=== PATIENT | female | born 1955 | race Caucasian/White ===

== ENCOUNTER 2021-05-09 07:27 | Outpatient (CLI) | payer MEDICARE, SELFPAY ==
[2021-05-09 08:46] LABS: Alanine Aminotransferase 50 U/L (14-59); Aspartate Amino Transferase 32 U/L (15-37); Cholesterol 152 mg/dL (0-200); Creatine Kinase 88 U/L (26-192); HDL Direct 76 mg/dL (40-60); LDL Cholesterol Calculated 67 mg/dL (<130); Triglycerides 46 mg/dL (0-150)
== END 2021-05-09 07:28 | disposition home or self-care (01) ==
PROVIDERS: PCP Internal Medicine
DX: E78.2 Mixed hyperlipidemia (principal)
CPT/HCPCS: 36415; 80061; 82550; 84450; 84460

== ENCOUNTER 2021-06-10 12:40 | Outpatient (CLI) | payer MEDICARE, SELFPAY ==
--- NOTE | ~2021-06-10 | MM_ITS ---
EXAMINATION: MM screening [facility] BI w jaclyn HISTORY: Screening mammogram TECHNIQUE: Craniocaudal and mediolateral oblique 3-D tomosynthesis images were obtained and synthetic 2-D images were generated. CAD analysis was submitted and interpreted. COMPARISON: 09/25/2014 BREAST PARENCHYMAL COMPOSITION: The breasts are heterogeneously dense, which may obscure small masses . FINDINGS: There is no evidence of suspicious mass, calcification, or architectural distortion to sugg est malignancy in either breast. There has been no suspicious interval change. IMPRESSION: 1. No mammographic evidence of malignancy. 2. Recommend routine screening mammography in one year. BI-RADS Category 1: Negative Reviewed, dictated and finalized at location A.
--- NOTE | ~2021-06-10 | DEXA_ITS ---
Bone Density Report Name: Carolina Serrano Age: 65 Sex: Female Ethnicity: White Date of : 1955 Indication: postmenopausal; screening for osteoporosis; Referring Provider: Neftali, Jessica Bobo Study: Bone densitometry was performed. Exam Date: June 10, 2021 Accession number: [id number] Bone Density: Region BMD T-score Z-score Classification AP Spine(L1-L4) 0.905 -1.3 0.5 Osteopenia Femoral Neck (Left) 0.623 -2.0 -0.5 Osteopenia Total Hip (Left) 0.823 -1.0 0.3 Normal Femoral Neck (Right) 0.698 -1.4 0.2 Osteopenia Total Hip (Right) 0.869 -0.6 0.7 Normal Femoral Neck Mean 0.661 -1.7 -0.1 Osteopenia Total Hip Mean 0.846 -0.8 0.5 Normal World Health Organization criteria for BMD impression classify patients as: Normal (T-score at or above -1.0), Osteopenia (T-score between -1.0 and -2.5), or Osteoporosis (T-score at or below -2.5). 10-year Fracture Risk(1): Major Osteoporotic Fracture 11% Hip Fracture 1.7% Reported Risk Factors: [place] (), Neck BMD=0.623, BMI=26.9 (1) FRAX(R) Version 3.08. Fracture probability calculated for an untreated patient. Fracture probability may be lower if the patient has received treatment. Clinical Information Provided by Patient: Has used the following medications: Vitamin D Menopause Age: 53 No regular weight bearing exercise Onset of menses at age 14 Number of children 2 Impression: The patient has low bone mass, based on the Left Femoral Neck T-score. Discussion: BONE DENSITY IS LOW AT ONE OR MORE SKELETAL SITES. This patient's lowest T-score is low at one or more skeletal sites. It meets the World Health Organization's (WHO) criteria for ?low bone mass? (T-score between -1.0 and -2.5). The patient's 10-year risk of fracture as calculated by FRAX is less than the threshold where pharmacological therapy is recommended by the National Osteoporosis Foundation (NOF). However, all treatment decisions require clinical judgment and consideration of individual patient factors, including patient preferences, comorbidities, previous drug use, risk factors not captured in the FRAX model (e.g., frailty, falls, vitamin D deficiency, increased bone turnover, interval significant decline in bone density) and possible under or overestimation of fracture risk by FRAX. The patient should follow a healthful lifestyle (good nutrition with adequate calcium and vitamin D, and appropriate weight-bearing exercise). Follow-Up: Consider repeating this study in 2 to 3 years to reassess this patient's status, or sooner if there is some new clinical indication. Reported by: Dr. Justin Callahan on 06/10/2021 1:09:00 PM. Reviewed, dictated and finalized at location [facility]US[facility]uan Manuel
== END 2021-06-10 12:41 | disposition home or self-care (01) ==
PROVIDERS: PCP Internal Medicine; Visit Provider Nurse Practitioner Obstetrics & Gynecology
DX: M85.80 Other specified disorders of bone density and structure, unspecified site (principal); Z12.31 Encounter for screening mammogram for malignant neoplasm of breast; Z78.0 Asymptomatic menopausal state
CPT/HCPCS: 77063; 77067; 77080

== ENCOUNTER 2021-12-25 06:55 | Outpatient (CLI) | payer MEDICARE, SELFPAY ==
[2021-12-25 08:08] LABS: Alanine Aminotransferase 32 U/L (14-59); Anion Gap 7 mmol/L (8-16); Aspartate Amino Transferase 22 U/L (15-37); Blood Urea Nitrogen 11 mg/dL (7-18); Calcium 9.5 mg/dL (8.5-10.1); Carbon Dioxide 29 mmol/L (21-32); Chloride 104 mmol/L (98-108); Cholesterol 138 mg/dL (0-200); Creatine Kinase 44 U/L (26-192); Estimated Glomerular Filt Rate > 60; Glucose 88 mg/dL (70-99); HDL Direct 60 mg/dL (40-60); LDL Cholesterol Calculated 70 mg/dL (<130); Osmolality Calculated 288 mOsm/kg (285-295); Potassium 4.4 mmol/L (3.5-5.1); Sodium 140 mmol/L (136-145); Triglycerides 41 mg/dL (0-150)
== END 2021-12-25 06:56 | disposition home or self-care (01) ==
LOC: CHSLAB 06:59
PROVIDERS: PCP Internal Medicine
DX: I48.0 Paroxysmal atrial fibrillation (principal); E78.2 Mixed hyperlipidemia
CPT/HCPCS: 36415; 80048; 80061; 82550; 84450; 84460

== ENCOUNTER 2022-06-02 06:57 | Outpatient (CLI) | payer MEDICARE, SELFPAY ==
[2022-06-02 07:17] LABS: Add Urine Microscopic? YES; Appearance Urine Clear (Clear); Basophils Absolute Auto 0.03 K/mm3 (0.00-0.10); Basophils Percent Auto 0.7 % (0.0-1.0); Bilirubin Urine Negative (Negative); Blood Urine Negative (Negative); Color Urine Light Yellow (Yellow); Eosinophils Absolute Auto 0.32 K/mm3 (0.02-0.50); Eosinophils Percent Auto 7.4 % (1.0-6.0); Glucose Urine UA Negative (Negative); Hemoglobin 13.6 g/dL (11.7-13.8); Immature Granulocyte Absolute 0.01 K/mm3 (0.00-0.00); Immature Granulocyte Percent A 0.2 % (0.0-0.0); Ketones Urine Negative (Negative); Leukocyte Esterase Ur Trace (Negative); Lymphocytes Absolute Auto 1.17 K/mm3 (1.10-4.50); Mean Corpuscular Hemoglobin 34.9 pg (27.0-31.0); Mean Corpuscular Volume 102.6 fL (78.0-102.0); Mean Platelet Volume 11.1 fl (9.2-11.8); Monocytes Absolute Auto 0.48 K/mm3 (0.10-0.90); Monocytes Percent Auto 11.1 % (2.0-11.0); Neutrophils Absolute Auto 2.3 K/mm3 (1.7-7.2); Neutrophils Percent Auto 53.6 % (50.0-70.0); Nitrate Urine Negative (Negative); Platelet Count Result 162 K/mm3 (150-420); Protein Urine Negative (Negative); Red Cell Distribution Width 12.5 % (11.6-14.4); Urobilinogen Urine 0.2 mg/dL (0.2-1.0); White Blood Count 4.3 K/mm3 (4.8-10.8)
[2022-06-02 07:25] LABS: Bacteria Urine Trace /hpf; RBC Urine None seen /hpf (0-2); Squamous Epithelial Cell Urine Rare /hpf (Few); WBC Urine 0-3 /hpf (0-3)
[2022-06-02 08:11] LABS: Alanine Aminotransferase 26 U/L (14-59); Albumin Level 3.9 g/dL (3.4-5.0); Alkaline Phosphatase 96 U/L (46-116); Anion Gap 5 mmol/L (8-16); Aspartate Amino Transferase 17 U/L (15-37); Bilirubin,Total 0.6 mg/dL (0.00-1.00); Blood Urea Nitrogen 13 mg/dL (7-18); Calcium 9.5 mg/dL (8.5-10.1); Carbon Dioxide 29 mmol/L (21-32); Chloride 105 mmol/L (98-108); Cholesterol 143 mg/dL (0-200); Estimated Glomerular Filt Rate > 60; Glucose 96 mg/dL (70-99); HDL Direct 58 mg/dL (40-60); LDL Cholesterol Calculated 76 mg/dL (<130); Osmolality Calculated 288 mOsm/kg (285-295); Potassium 4.2 mmol/L (3.5-5.1); Sodium 139 mmol/L (136-145); Thyroid Stimulating Hormone 4.24 uIU/mL (0.36-3.74); Total Protein 6.9 g/dL (6.4-8.2); Triglycerides 44 mg/dL (0-150)
== END 2022-06-02 06:58 | disposition home or self-care (01) ==
LOC: CHSLAB 06:59
PROVIDERS: PCP Internal Medicine; Visit Provider Internal Medicine
DX: I48.91 Unspecified atrial fibrillation (principal); E78.5 Hyperlipidemia, unspecified; Z00.00 Encounter for general adult medical examination without abnormal findings
CPT/HCPCS: 36415; 80053; 80061; 81001; 84443; 85025

== ENCOUNTER 2022-06-22 17:55 | Emergency (ER) | payer MEDICARE, SELFPAY ==
[2022-06-22] VITALS (27 sets, daily range): BP systolic 91–130; BP diastolic 39–71; PULSE 74–132; RESP 16; TEMP 37; O2SAT 94–100
--- NOTE | 2022-06-22 17:58 | ECG_ITS ---
Measurements Intervals [place] Rate: 78 P: 49 FL: 149 QRS: 21 QRSD: 81 T: 31 QT: 361 QTc: 413 Interpretive Statements SINUS RHYTHM BASELINE ARTIFACT POSSIBLE LEFT ATRIAL ENLARGEMENT NONSPECIFIC ST ABNORMALITY BORDERLINE ECG NO PREVIOUS ECG AVAILABLE FOR COMPARISON Electronically Signed On 06-24-2022 17:03:28 CDT by Jose C Michel M.D.
--- NOTE | 2022-06-22 18:00 | ED.CHESTPAIN ---
HPI - Chest Pain General Chief Complaint: Dizziness Stated Complaint: throwing up/dizzy/back pain/Urgent Care this AM Time Seen by Provider: 06/22/22 17:57 History of Present Illness HPI narrative: Patient is a 67-year-old white female who has had cloudy urine for the last 2 days without other urinary symptoms. She went to urgent care and was started on Macrobid at 117 this afternoon. At 3:00 p.m. she started having nausea vomiting and diarrhea multiple times. She is dizzy or lightheaded this is especially associated with standing or the upright position. Her diarrhea was loose watery nonbloody. Denies any fever cough runny nose sore throat lumps or bumps. She feels thirsty. Related Data Home Medications Medication Instructions Recorded Confirmed apixaban 5 mg tablet (Eliquis) 5 mg PO BID 06/22/22 06/22/22 atorvastatin 20 mg tablet 20 mg PO HS 06/22/22 06/22/22 metoprolol succinate 50 mg 50 mg PO BID 06/22/22 06/22/22 tablet,extended release 24 hr Allergies Allergy/AdvReac Type Severity Reaction Status Date / Time No Known Allergies Allergy Unknown Unverified 06/22/22 18:06 Review of Systems Review of Systems: All systems reviewed & are unremarkable except as noted in HPI and below Constitutional: Constitutional: Reports as per HPI Eyes: Eyes: Reports no additional eye complaints ENT: Reports system reviewed and no additional complaints, except as documented and Reports as per HPI Cardiovascular: Cardiovascular: Reports no additional cardiovascular complaints and Denies chest pain Respiratory: Respiratory: Reports no additional respiratory complaints, Denies cough and Denies dyspnea Gastrointestinal: Gastrointestinal: Reports as per HPI Musculoskeletal: Musculoskeletal: Reports no additional musculoskeletal complaints Integumentary/Breasts: Skin/Breast: Reports system reviewed and no additional complaints, except as docu Neurologic: Reports system reviewed and no additional complaints, except as documented Psychiatric: Psychiatric: Reports no additional psychiatric complaints Endocrine: Endocrine: Reports no additional endocrine complaints Hematologic/Lymphatic: Hematologic/Lymphatic: Reports no additional hematologic/lymphatic complaints Exam Narrative: Patient's elderly white female she does not appear in any distress. Ears TMs are normal. Neck is supple no lymphadenopathy. Eyes conjunctiva pink sclera nonicteric. Oropharynx is clear with moist mucous membranes lungs are clear heart is regular rate and rhythm without murmurs gallops or rubs abdomen soft and nontender no hepatosplenomegaly or masses. Extremities no cyanosis clubbing or edema. Neurological she is alert and oriented x4 motor and sensory grossly intact Course SAMPLE SEWER/PA Physician Supervision patient was given a L of normal saline as a bolus, Zofran 4 mg ODT. EKG showed sinus rhythm with left atrial enlargement normal axis poor RS progression across the precordium no acute ST T wave changes impression abnormal EKG. Patient received a 2nd bolus of normal saline feels much better no longer dizzy or lightheaded no nausea. No diarrhea since been in the emergency room. Her nausea vomiting diarrhea could have been from Macrobid but I can not say 110% sure. it could be an acute gastroenteritis. Patient was given cephalexin 500 mg. She is given 50 mEq of potassium p.o. and a prescription for K-Dur 20 mEq daily for 10 days. She was given a hard copy of this EKG or prescription. And prescriptions of Zofran and cephalexin were sent to her pharmacy via the phone lines. Vital Signs Vital signs: Vital Signs Temperature 37.0 C 06/22/22 18:01 Pulse Rate 132 H 06/22/22 18:01 Respiratory Rate 16 06/22/22 18:01 Blood Pressure 126/71 06/22/22 18:01 Pulse Oximetry 100 06/22/22 18:01 Oxygen Delivery Room Air 06/22/22 18:01 Temperature 37.0 C 06/22/22 18:01 Pulse Rate 88 06/22/22 20:54 Respiratory Rate 16 06/22/22
[2022-06-22] MEDS: ONDANSETRON HCL ODT 4 MG TABLET PO (18:21)
[2022-06-22 19:03] LABS: Basophils Absolute Auto 0.01 K/mm3 (0.00-0.10); Basophils Percent Auto 0.2 % (0.0-1.0); Eosinophils Absolute Auto 0.03 K/mm3 (0.02-0.50); Eosinophils Percent Auto 0.5 % (1.0-6.0); Hematocrit 34.9 % (35.0-42.0); Immature Granulocyte Absolute 0.02 K/mm3 (0.00-0.00); Immature Granulocyte Percent A 0.3 % (0.0-0.0); Immature Platelet Fraction Pct 3.2 % (1.0-7.0); Lymphocytes Absolute Auto 0.26 K/mm3 (1.10-4.50); Mean Corpuscular HGB Conc 34.4 g/dL (32.0-36.0); Mean Corpuscular Hemoglobin 34.8 pg (27.0-31.0); Mean Corpuscular Volume 101.2 fL (78.0-102.0); Mean Platelet Volume 11.1 fl (9.2-11.8); Monocytes Absolute Auto 0.21 K/mm3 (0.10-0.90); Monocytes Percent Auto 3.2 % (2.0-11.0); Neutrophils Percent Auto 91.8 % (50.0-70.0); Platelet Count Result 125 K/mm3 (150-420); Red Blood Count 3.45 M/mm3 (4.20-5.40); Red Cell Distribution Width 12.9 % (11.6-14.4); White Blood Count 6.5 K/mm3 (4.8-10.8)
[2022-06-22 19:13] LABS: Partial Thromboplastin Time 27.9 SEC (23.90-30.70); Prothrombin Time 11.4 Seconds (9.50-12.10)
[2022-06-22 19:17] LABS: D Dimer 0.75 mg/L (0.19-0.50)
[2022-06-22 19:21] LABS: Alanine Aminotransferase 29 U/L (14-59); Albumin Level 3.9 g/dL (3.4-5.0); Alkaline Phosphatase 103 U/L (46-116); Anion Gap 8 mmol/L (8-16); Aspartate Amino Transferase 18 U/L (15-37); Bilirubin,Total 1.1 mg/dL (0.00-1.00); Blood Urea Nitrogen 11 mg/dL (7-18); Calcium 9.6 mg/dL (8.5-10.1); Carbon Dioxide 28 mmol/L (21-32); Chloride 105 mmol/L (98-108); Estimated Glomerular Filt Rate > 60; Glucose 102 mg/dL (70-99); Osmolality Calculated 291 mOsm/kg (285-295); Potassium 3.3 mmol/L (3.5-5.1); Sodium 141 mmol/L (136-145); Total Protein 6.5 g/dL (6.4-8.2); Troponin I 5.1 ng/L (0.00-60.4)
[2022-06-22] MEDS: SODIUM CHLORIDE 0.9% IV 1,000 ML 999 ML IV CONT ×2 (19:26→21:01)
[2022-06-22] MEDS: POTASSIUM BICARBONATE 25 MEQ TABEF 50 MEQ PO (20:31)
[2022-06-22 21:07] LABS: Appearance Urine Clear (Clear); Bilirubin Urine Negative (Negative); Blood Urine Negative (Negative); Glucose Urine UA Negative (Negative); Ketones Urine Trace (Negative); Leukocyte Esterase Ur Trace (Negative); Nitrate Urine Negative (Negative); Protein Urine Negative (Negative); Specific Grav Ur 1.015 (1.010-1.020); Urobilinogen Urine 0.2 mg/dL (0.2-1.0)
[2022-06-22 21:13] LABS: Add Urine Microscopic? YES; Bacteria Urine Trace /hpf; Color Urine Light Yellow (Yellow); RBC Urine 0-2 /hpf (0-2); Squamous Epithelial Cell Urine Many /hpf (Few); WBC Clumps Urine Present /hpf
[2022-06-22] MEDS: CEPHALEXIN 500 MG CAPSULE PO (21:46)
== END 2022-06-22 22:30 | disposition home or self-care (01) ==
PROVIDERS: Emergency Provider Emergency Medicine; PCP Internal Medicine
DX: R11.2 Nausea with vomiting, unspecified (principal); R19.7 Diarrhea, unspecified; E87.6 Hypokalemia
CPT/HCPCS: 36415; 80053; 81001; 84484; 85025; 85055; 85380; 85610; 85730; 93005; 96360; 96361; 99284; A9270; J7030

== ENCOUNTER 2022-08-29 08:24 | Outpatient (CLI) | payer MEDICARE, SELFPAY ==
--- NOTE | ~2022-08-29 | MM_ITS ---
EXAMINATION: MM screening [facility] BI w jaclyn HISTORY: Screening mammogram TECHNIQUE: Craniocaudal and mediolateral oblique 3-D tomosynthesis images were obtained and synthetic 2-D images were generated. CAD analysis was submitted and interpreted. COMPARISON: 06/10/2021, 09/25/2014, 08/25/2013 BREAST PARENCHYMAL COMPOSITION: The breasts are heterogeneously dense, which may obscure small masses . FINDINGS: No suspicious mass, calcification, or architectural distortion are identified in either nikolay ast to suggest malignancy. There has been no suspicious interval change. IMPRESSION: 1. No mammographic evidence of malignancy. 2. Recommend routine screening mammography in one year. BI-RADS Category 1: Negative Reviewed, dictated and finalized at location A. WASH BUFFER
== END 2022-08-29 08:25 | disposition home or self-care (01) ==
LOC: CHSIMG 08:25
PROVIDERS: PCP Internal Medicine; Visit Provider Nurse Practitioner Obstetrics & Gynecology
DX: Z12.31 Encounter for screening mammogram for malignant neoplasm of breast (principal)
CPT/HCPCS: 77063; 77067

== ENCOUNTER 2022-12-11 07:02 | Outpatient (CLI) | payer MEDICARE, SELFPAY ==
[2022-12-11 07:18] LABS: Basophils Absolute Auto 0.04 K/mm3 (0.00-0.10); Basophils Percent Auto 0.8 % (0.0-1.0); Eosinophils Absolute Auto 0.31 K/mm3 (0.02-0.50); Eosinophils Percent Auto 6.4 % (1.0-6.0); Hemoglobin 14.4 g/dL (11.7-13.8); Immature Granulocyte Absolute 0.02 K/mm3 (0.00-0.00); Immature Granulocyte Percent A 0.4 % (0.0-0.0); Lymphocytes Absolute Auto 1.77 K/mm3 (1.10-4.50); Lymphocytes Percent Auto 36.8 % (18.0-42.0); Mean Corpuscular HGB Conc 34.3 g/dL (32.0-36.0); Mean Corpuscular Hemoglobin 33.7 pg (27.0-31.0); Mean Corpuscular Volume 98.4 fL (78.0-102.0); Mean Platelet Volume 10.4 fl (9.2-11.8); Monocytes Absolute Auto 0.33 K/mm3 (0.10-0.90); Monocytes Percent Auto 6.9 % (2.0-11.0); Neutrophils Absolute Auto 2.3 K/mm3 (1.7-7.2); Neutrophils Percent Auto 48.7 % (50.0-70.0); Platelet Count Result 181 K/mm3 (150-420); Red Blood Count 4.27 M/mm3 (4.20-5.40); Red Cell Distribution Width 11.9 % (11.6-14.4); White Blood Count 4.8 K/mm3 (4.8-10.8)
[2022-12-11 08:19] LABS: Cholesterol 168 mg/dL (0-200); Free T3 3.06 pg/mL (2.18-3.98); Free T4 Free Thyroxine 0.93 ng/dL (0.76-1.46); HDL Direct 60 mg/dL (40-60); LDL Cholesterol Calculated 96 mg/dL (<130); Thyroid Stimulating Hormone 3.47 uIU/mL (0.36-3.74); Triglycerides 62 mg/dL (0-150)
== END 2022-12-11 07:03 | disposition home or self-care (01) ==
LOC: CHSLAB 07:07
PROVIDERS: PCP Internal Medicine; Visit Provider Internal Medicine
DX: R94.6 Abnormal results of thyroid function studies (principal); E78.5 Hyperlipidemia, unspecified
CPT/HCPCS: 36415; 80061; 84439; 84443; 84481; 85025

== ENCOUNTER 2023-06-16 07:06 | Outpatient (CLI) | payer MEDICARE, SELFPAY ==
[2023-06-16 07:29] LABS: Appearance Urine Clear (Clear); Basophils Absolute Auto 0.04 K/mm3 (0.00-0.10); Basophils Percent Auto 0.8 % (0.0-1.0); Bilirubin Urine Negative (Negative); Blood Urine Negative (Negative); Color Urine Yellow (Yellow); Eosinophils Absolute Auto 0.24 K/mm3 (0.02-0.50); Eosinophils Percent Auto 4.9 % (1.0-6.0); Glucose Urine UA Negative (Negative); Hematocrit 39.6 % (35.0-42.0); Hemoglobin 13.6 g/dL (11.7-13.8); Immature Granulocyte Absolute 0.01 K/mm3 (0.00-0.00); Immature Granulocyte Percent A 0.2 % (0.0-0.0); Ketones Urine Negative (Negative); Leukocyte Esterase Ur Trace (Negative); Lymphocytes Absolute Auto 1.14 K/mm3 (1.10-4.50); Lymphocytes Percent Auto 23.1 % (18.0-42.0); Mean Corpuscular HGB Conc 34.3 g/dL (32.0-36.0); Mean Corpuscular Hemoglobin 35.4 pg (27.0-31.0); Mean Corpuscular Volume 103.1 fL (78.0-102.0); Mean Platelet Volume 10.7 fl (9.2-11.8); Monocytes Absolute Auto 0.39 K/mm3 (0.10-0.90); Monocytes Percent Auto 7.9 % (2.0-11.0); Neutrophils Absolute Auto 3.1 K/mm3 (1.7-7.2); Neutrophils Percent Auto 63.1 % (50.0-70.0); Nitrate Urine Negative (Negative); Platelet Count Result 193 K/mm3 (150-420); Protein Urine Negative (Negative); Red Blood Count 3.84 M/mm3 (4.20-5.40); Red Cell Distribution Width 12.4 % (11.6-14.4); White Blood Count 4.9 K/mm3 (4.8-10.8)
[2023-06-16 07:37] LABS: Add Urine Microscopic? YES; RBC Urine None seen /hpf (0-2)
[2023-06-16 07:38] LABS: Bacteria Urine Trace /hpf; Squamous Epithelial Cell Urine Few /hpf (Few); WBC Urine 0-3 /hpf (0-3)
[2023-06-16 07:57] LABS: Alanine Aminotransferase 26 U/L (14-59); Albumin Level 3.9 g/dL (3.4-5.0); Alkaline Phosphatase 98 U/L (46-116); Anion Gap 6 mmol/L (8-16); Aspartate Amino Transferase 18 U/L (15-37); Bilirubin,Total 0.8 mg/dL (0.00-1.00); Blood Urea Nitrogen 10 mg/dL (7-18); Calcium 9.7 mg/dL (8.5-10.1); Carbon Dioxide 29 mmol/L (21-32); Chloride 106 mmol/L (98-108); Cholesterol 177 mg/dL (0-200); Estimated Glomerular Filt Rate > 60; Glucose 88 mg/dL (70-99); HDL Direct 67 mg/dL (40-60); LDL Cholesterol Calculated 98 mg/dL (<130); Osmolality Calculated 290 mOsm/kg (285-295); Potassium 4.7 mmol/L (3.5-5.1); Sodium 141 mmol/L (136-145); Total Protein 6.5 g/dL (6.4-8.2); Triglycerides 60 mg/dL (0-150)
== END 2023-06-16 07:07 | disposition home or self-care (01) ==
LOC: CHSLAB 07:08
PROVIDERS: PCP Internal Medicine; Visit Provider Internal Medicine
DX: I10 Essential (primary) hypertension (principal); I48.91 Unspecified atrial fibrillation
CPT/HCPCS: 36415; 80053; 80061; 81001; 83735; 85025

== ENCOUNTER 2024-06-15 07:06 | Outpatient (CLI) | payer MEDICARE, SELFPAY ==
[2024-06-15 07:21] LABS: Basophils Absolute Auto 0.04 K/mm3 (0.00-0.10); Basophils Percent Auto 0.8 % (0.0-1.0); Eosinophils Absolute Auto 0.27 K/mm3 (0.02-0.50); Eosinophils Percent Auto 5.4 % (1.0-6.0); Hematocrit 37.9 % (35.0-42.0); Hemoglobin 13.1 g/dL (11.7-13.8); Immature Granulocyte Absolute 0.01 K/mm3 (0.00-0.00); Immature Granulocyte Percent A 0.2 % (0.0-0.0); Lymphocytes Absolute Auto 1.11 K/mm3 (1.10-4.50); Lymphocytes Percent Auto 22.3 % (18.0-42.0); Mean Corpuscular HGB Conc 34.6 g/dL (32-36); Mean Corpuscular Hemoglobin 35.4 pg (27.0-31.0); Mean Corpuscular Volume 102.4 fL (78.0-102.0); Mean Platelet Volume 10.2 fl (9.2-11.8); Monocytes Absolute Auto 0.34 K/mm3 (0.10-0.90); Monocytes Percent Auto 6.8 % (2.0-11.0); Neutrophils Percent Auto 64.5 % (50.0-70.0); Platelet Count Result 166 K/mm3 (150-420); Red Cell Distribution Width 12.5 % (11.6-14.4)
[2024-06-15 07:23] LABS: Add Urine Microscopic? YES; Appearance Urine Sl Cloudy (Clear); Bilirubin Urine Negative (Negative); Blood Urine Negative (Negative); Color Urine Light Yellow (Yellow); Glucose Urine UA Negative (Negative); Ketones Urine Negative (Negative); Leukocyte Esterase Ur 2+ (Negative); Nitrate Urine Negative (Negative); Protein Urine Negative (Negative); Specific Grav Ur 1.015 (1.010-1.020)
[2024-06-15 07:35] LABS: Bacteria Urine 1+ /hpf; RBC Urine None seen /hpf (0-2); Squamous Epithelial Cell Urine Moderate /hpf (Few)
[2024-06-15 08:21] LABS: Alanine Aminotransferase 23 U/L (14-59); Alkaline Phosphatase 108 U/L (46-116); Anion Gap 6 mmol/L (4-12); Aspartate Amino Transferase 21 U/L (15-37); Bilirubin,Total 0.9 mg/dL (0.00-1.00); Blood Urea Nitrogen 7 mg/dL (7-18); Calcium 9.4 mg/dL (8.5-10.1); Carbon Dioxide 32 mmol/L (21-32); Chloride 103 mmol/L (98-108); Cholesterol 175 mg/dL (0-200); Estimated Glomerular Filt Rate > 60; Glucose 90 mg/dL (70-99); HDL Direct 67 mg/dL (40-60); LDL Cholesterol Calculated 90 mg/dL (<130); Osmolality Calculated 290 mOsm/kg (285-295); Potassium 4.2 mmol/L (3.5-5.1); Sodium 141 mmol/L (136-145); Thyroid Stimulating Hormone 4.14 uIU/mL (0.36-3.74); Total Protein 6.7 g/dL (6.4-8.2); Triglycerides 92 mg/dL (0-150)
== END 2024-06-15 07:07 | disposition home or self-care (01) ==
PROVIDERS: PCP Internal Medicine; Visit Provider Internal Medicine
DX: E78.5 Hyperlipidemia, unspecified (principal); I48.0 Paroxysmal atrial fibrillation
CPT/HCPCS: 36415; 80053; 80061; 81001; 84443; 85025

== ENCOUNTER 2024-09-12 14:18 | Outpatient (CLI) | payer MEDICARE, SELFPAY ==
--- NOTE | ~2024-09-12 | DEXA_ITS ---
Bone Density Report Name: BRIAN SOSA Age: 69 Sex: Female Ethnicity: White Date of : 1955 Indication: osteopenia; Referring Provider: Ryan Meyers Study: Bone densitometry was performed. Exam Date: September 12, 2024 Accession number: [id number] Bone Density: Region BMD T-score Z-score Classification AP Spine(L1-L4) 0.850 -1.8 0.3 Osteopenia Femoral Neck (Left) 0.618 -2.1 -0.3 Osteopenia Total Hip (Left) 0.820 -1.0 0.5 Normal Femoral Neck (Right) 0.698 -1.4 0.4 Osteopenia Total Hip (Right) 0.860 -0.7 0.8 Normal Femoral Neck Mean 0.658 -1.7 0.0 Osteopenia Total Hip Mean 0.840 -0.8 0.6 Normal World Health Organization criteria for BMD impression classify patients as: Normal (T-score at or above -1.0), Osteopenia (T-score between -1.0 and -2.5), or Osteoporosis (T-score at or below -2.5). 10-year Fracture Risk(1): Major Osteoporotic Fracture 12% Hip Fracture 2.2% Reported Risk Factors: [place] (), Neck BMD=0.618, BMI=26.8 (1) FRAX(R) Version 3.08. Fracture probability calculated for an untreated patient. Fracture probability may be lower if the patient has received treatment. Previous Exams: Region Exam Age BMD T-score BMD Change BMD Change Date g/cm2 vs Baseline vs Previous AP Spine (L1-L4) 09/12/2024 69 0.850 -1.8 -0.055 (-6.1%) -0.055 (-6.1%) 06/10/2021 65 0.905 -1.3 Total Hip(Left) 09/12/2024 69 0.820 -1.0 -0.003 (-0.3%) -0.003 (-0.3%) 06/10/2021 65 0.823 -1.0 Total Hip(Right) 09/12/2024 69 0.860 -0.7 -0.009 (-1.1%) -0.009 (-1.1%) 06/10/2021 65 0.869 -0.6 *Denotes significance at 95% confidence level, LSC for AP Spine = 0.022 g/cm2, LSC for Total Hip = 0.027 g/cm2 Clinical Information Provided by Patient: Has used the following medications: Vitamin D Patient maximum height was 64 Menopause Age: 53 No regular weight bearing exercise Onset of menses at age 14 Number of children 2 Impression: The patient has low bone mass, based on the Left Femoral Neck T-score. The BMD for the AP Spine (L1-L4) decreased, changing by -6.1% since the last DXA exam. Discussion: BONE DENSITY IS LOW AT ONE OR MORE SKELETAL SITES. This patient's lowest T-score is low at one or more skeletal sites. It meets the World Health Organization's (WHO) criteria for ?low bone mass? (T-score between -1.0 and -2.5). The patient's 10-year risk of fracture as calculated by FRAX is less than the threshold where pharmacological therapy is recommended by the National Osteoporosis Foundation (NOF). However, all treatment decisions require clinical judgment and consideration of individual patient factors, including patient preferences, comorbidities, previous drug use, risk factors not captured in the FRAX model (e.g., frailty, falls, vitamin D deficiency, increased bone turnover, interval significant decline in bone density) and possible under or overestimation of fracture risk by FRAX. The patient should follow a healthful lifestyle (good nutrition with adequate calcium and vitamin D, and appropriate weight-bearing exercise). Follow-Up: Consider repeating this study in 2 years to reassess this patient's status, or sooner if there is some new clinical indication. Reported by: RAYMUNDO on 09/12/2024 2:45:00 PM. Reviewed, dictated and finalized at location A.
--- NOTE | ~2024-09-12 | MM_ITS ---
EXAMINATION: MM screening [facility] BI w jaclyn HISTORY: Screening TECHNIQUE: Craniocaudal and mediolateral oblique 3-D tomosynthesis images were obtained and synthetic 2-D images were generated. CAD analysis was submitted and interpreted. COMPARISON: 08/29/2022 and dating back to 09/25/2014 BREAST PARENCHYMAL COMPOSITION: The breasts are heterogeneously dense, which may obscure small masses . FINDINGS: Punctate calcifications detected bilaterally, stable and benign in appearance and vascular in origin. Stable parenchymal pattern without suspicious microcalcifications, architectural distortion, discrete masses or significant asymmetry. IMPRESSION: 1. No mammographic evidence of malignancy. 2. Recommend routine screening mammography in one year. BI-RADS Category 2: Benign finding(s). Reviewed, dictated and finalized at location A. [facility]
== END 2024-09-12 14:19 | disposition home or self-care (01) ==
LOC: CHSIMG 14:19
PROVIDERS: PCP Internal Medicine; Visit Provider Internal Medicine
DX: Z12.31 Encounter for screening mammogram for malignant neoplasm of breast (principal); M81.0 Age-related osteoporosis without current pathological fracture; M85.89 Other specified disorders of bone density and structure, multiple sites
CPT/HCPCS: 77063; 77067; 77080

== ENCOUNTER 2025-01-17 14:35 | Outpatient (CLI) | payer MEDICARE, SELFPAY ==
--- NOTE | ~2025-01-17 | XR_ITS ---
XR knee RT 3V 01/17/2025 14:49 Indication: Right knee pain. Procedure: 3 views right knee Comparison: No prior studies for comparison. Findings: There is mild tricompartment osteoarthritis. There is chondrocalcinosis. No significant hubert nt effusion. No fracture or traumatic malalignment. Impression: 1: Mild tricompartment osteoarthritis. 2: Chondrocalcinosis. Reviewed, dictated and finalized at location A. Impression: 1: Mild tricompartment osteoarthritis. 2: Chondrocalcinosis.
--- OUTSIDE RECORDS SUMMARY | 2025-01-17 16:33 | XMS_ITS | Data Portability ---
Author Organization [facility], [facility], [facility] Address [address] [place] [address] Care Team Providers Care Sales Executive Insurance Name Role Phone Unavailable Referring Provider Unavailable JAMES WEEMS Electrotyper Helper GWYN BILL Primary Care Provider MOISÉS WORKMAN Electrotyper Helper Assessment No assessment recorded. Plan of Treatment Reminders Order Date Submit Date Provider Last Modified By Organization Details Last Modified Time Details Appointments None recorded. Lab None recorded. Referral None recorded. Procedures None recorded. Surgeries None recorded. Imaging electrocar diogram 2023 024 jarambula In-Office Order, Internal Use Only DO Not Attach Compendium DO Not Attach Compendium, Do Not Delete/merge, [id number] 10:34:43 US, echocardio gram - Schedule at [facility] or [facility] sites only. 2023 024 [facility], [facility], All Locations, [place], [address], 4 12:39:23 electrocar diogram 2022 023 [email or web address] In-Office Order, Internal Use Only DO Not Attach Compendium DO Not Attach Compendium, Do Not Delete/merge, [id number] 3 08:15:52 Medication Orders atorvastat in 20 mg tablet 2023 024 [place] [facility], [facility] [address], [address], [id number], 4 10:07:42 Eliquis 5 mg tablet 2023 024 [place] [facility], [address], [address], [place], [place], [id number], 4 10:07:41 flecainide 50 mg tablet 2023 024 [place] [facility], [address], [address], [place], [place], [id number], 4 10:07:42 metoprolol succinate ER 25 mg tablet,ext ended release 24 hr 2023 024 [place] [facility], [address], [address], [place], [place], [id number], 4 10:07:41 flecainide 50 mg tablet 2022 023 [place] [facility], [address], [address], [place], [place], [id number], 3 13:00:55 metoprolol succinate ER 25 mg tablet,ext ended release 24 hr 2022 023 [place] [facility], [address], [address], [place], [place], [id number], 3 13:00:55 atorvastat in 20 mg tablet 2021 022 [place] [facility], [address], [address], [place], [place], [id number], 2 08:21:54 Eliquis 5 mg tablet 2021 022 [place] [facility], [address], [address], [place], [place], [id number], 2 08:21:53 metoprolol succinate ER 50 mg tablet,ext ended release 24 hr 2021 022 [place] [facility], [facility] [address], [facility] [address], [place], [place], [id number], 3 13:14:56 Patient TargetsNo targets recorded. Patient InstructionsNo instructions recorded. Reason for Referral None Reported. Results Created Date Observation Date Name Description Value Unit Range Abnormal Flag Note LastModifiedBy Organization Detail LastModifiedTime 12/09/19 23 elect rocar diogr am No observ ation record ed. [email or web address] Not Available 2022 12:35:53 02/28/20 23 02/27/2023 elect rocar diogr am No observ ation record ed. [facility] [address] [facility] [address], [place], [address], 02/27/2023 15:32:32 08/01/20 24 elect rocar diogr am No observ ation record ed. [email or web address] Not Available 2023 10:00:04 08/08/20 24 08/08/2024 , [facility] ardio gram No observ ation record ed. [facility] Services [facility] All Locations, [place], [address], 08/08/2024 12:53:09 Result Notes None recorded. Problems Name Problem SNOMED Code Status Onset Date Resolution Date Notes Provider Name and Address Organization Details Recorded Time Paroxysmal supraventr icular tachycardi a 54318781 Active 09/2021 on Zio monitor James Weems MD [address], [place], [address], [facility], [facility] 09:20:48 Dyspnea on exertion 87774590 Active 2018 James Weems MD [address], [place], [address], [facility], [facility] 9 08:47:09 Atheroscle rosis of aorta 27504557 Active 2019 Ana Luisa Renee, TIMBER CUTTER [address], [place], [address], [facility], [facility] 0 08:19:26 Tricuspid valve regurgitat ion 404538950 Active 2019 mild James Weems MD [address], [place], [address], [facility], [facility] 0 15:44:08 Mitral valve regurgitat ion 18238002 Active 2019 mild James Weems MD [address], [place], [address], [facility], [facility] 0 15:44:02 Cardiovasc ular stress test abnormal 702552128 Active 201909/07/[address] changes on TST 10/10/2019 mild apical ischemia on NST; medical therapy 09/03/2021 normal NST James Weems MD [address], [place], [address], [facility], [facility] 1 09:55:07 Mixed hyperlipid emia 796193690 Active 2019 James Weems MD [address], [place], [address], [facility], [facility] 0 15:45:08 Overweight 784212097 Active 2019 James Weems MD [address], [place], [address], [facility], [facility] 0 15:45:23 Paroxysmal atrial fibrillati on 362555573 Active 07/2021 new onset; started Eliquis 09/2021 Zio monitor: 16% 11/2022 started flecainide James Weems MD [address], [place], [address], [facility], [facility] 3 11:32:19 Problem Notes None recorded. Procedures Surgical History Date Name Laterality Status Provider Name and Address Organization Details Recorded Time 4 G2211 completed James Weems MD [address] [facility] [address], [place], [address], [facility] - [facility], [facility] 08/01/2024 09:57:44 Colonoscopy completed Marian Alvares [facility], [facility] 08/06/2023 08:07:31 Imaging Results Imaging Date Name Status LastModified by Organization Details LastModified Time 12/08/2022 electrocardiogram completed [email or web address] Informa tion not available 12/08/2022 12:35:53 02/27/2023 electrocardiogram completed [facility] [address], [place], [address], 02/27/2023 15:32:32 08/01/2024 electrocardiogram completed [email or web address] Informa tion not available 08/01/2024 10:00:04 08/08/2024 US, echocardiogram completed nleson Th[facility] All Locations, [place], [address], 08/08/2024 12:53:09 Procedure Notes None recorded. Medical Equipment None Reported. Allergies No known drug allergies Medications Name Sig Start Date Stop Date Status Note LastModified by Organization Details LastModified Time atorvastat in 20 mg tablet Take 1 tablet every day by oral route at bedtime. 2023 active Not Available Not Available Not Avai lable metoprolol succinate ER 50 mg tablet,ext ended release 24 hr Take 1 tablet twice a day by oral route. 12/08 completed Not Available Not Available Not Available aspirin 81 mg tablet,del ayed release Take 1 tablet every day by oral route. 07/29 completed Not Available Not Available Not Available biotin 10,000 mcg capsule Take 1 capsule every day by oral route. 07/29 completed pt has not been taking Not Available Not Available Not Available flecainide 50 mg tablet Take 1 tablet every 12 hours by oral route. 11/11/ 2024 active Not Available Not Available Not Avai lable estradiol 0.5 mg tablet Take 1 tablet by oral route. 10/20 completed Take every 4 days Not Available Not Available Not Available metoprolol succinate ER 25 mg tablet,ext ended release 24 hr Take 1 tablet twice a day by oral route. 2023 active Not Available Not Available Not Avai lable Vitamin D3 5,000 units daily 08/01 completed Not Available Not Available Not Available PreserVisi on AREDS daily 08/01 completed Not Available Not Available Not Available Eliquis 5 mg tablet Take 1 tablet twice a day by oral route. 2023 active Not Available Not Available Not Avai lable Vitals Date Recorded Body height Body mass index (BMI) Body weight Heart rate Oxygen saturation Oxygen saturation in Arterial blood by Pulse oximetry Systolic blood pressure Diastolic blood pressure Provider Name and Address Organization Details Last Updated DateTime 2 160.02 cm 26.7 kg/m2 55405.0 1 g 54.99 /min 95 % 95 % 108 mm[Hg] 60 mm[Hg] [facility], [facility] 2 08:07:28 Date Recorded Body height Body mass index (BMI) Body weight Heart rate Systolic blood pressure Diastolic blood pressure Provider Name and Address Organization Details Last Updated DateTime 3 160.02 cm 26 kg/m2 09513.0 8 g 52 /min 116 mm[Hg] 70 mm[Hg] Bharati Gordon [facility], [facility] 3 12:26:22 Date Recorded Body height Heart rate Body mass index (BMI) Body weight Systolic blood pressure Diastolic blood pressure Provider Name and Address Organization Details Last Updated DateTime 3 160.02 cm 58 /min 25.7 kg/m2 65662.8 9 g 123 mm[Hg] 60 mm[Hg] James Weems MD [address] [facility] [address], [place], [address] [place] [address], [facility] 3 14:14:38 Date Recorded Body height Body mass index (BMI) Body weight Oxygen saturation Oxygen saturation in Arterial blood by Pulse oximetry Heart rate Systolic blood pressure Diastolic blood pressure Provider Name and Address Organization Details Last Updated DateTime 3 160.02 cm 26.7 kg/m2 21274.3 7 g 99 % 99 % 47 /min 90 mm[Hg] 60 mm[Hg] Marianmacario Alvraes [facility], [facility] 3 08:10:21 Date Recorded Body height Body mass index (BMI) Body weight Oxygen saturation Oxygen saturation in Arterial blood by Pulse oximetry Heart rate Systolic blood pressure Diastolic blood pressure Provider Name and Address Organization Details Last Updated DateTime 4 160.02 cm 26.3 kg/m2 07990.4 7 g 97 % 97 % 56 /min 100 mm[Hg] 66 mm[Hg] Gisselle Madeleine [facility], [facility] 4 09:51:55 Social History Question Answer Notes LastModified by Organizat ion Details LastModified Time Tobacco Smoking Status Never Smoker Bharati basurto [facility], [facility] 08/23/2019 08:30:04 How Much Tobacco Do You Chew? None Information not available 08/23/2019 What Is Your Occupation? Retired Information not available 08/23/2019 Alcohol Use 1-2 Per Week Information not available 08/23/2019 Marital Status Informatio n not available 08/23/2019 Do You Or Have You Ever Used Smokeless Tobacco? Never Used Smokeless Tobacco Information not available 08/23/2019 Sex: Female Functional Status None recorded. Mental Status None recorded. Family History Relationship Description Onset Age of this Age Resolved Age Notes LastModified by Organization Details LastModified Time Father No current problems or disability [email or web address] Not available 08/06 08:07:16 Mother No current problems or disability [email or web address] Not available 08/06 08:07:16 Mother Arthritis [email or web address] Not availab le 08/06/2023 08:07:16 Mother Hypothyroidi sm [email or web address] Not available 2022 08:07:16 Mother Atrial fibrillation [email or web address] Not available 08:07:16 Medical History Condition Response Cancer (location) N Other N Gout N Thyroid Disease N Kidney Stones N Measles/Mumps Y Emphysema/COPD N Sexually Transmitted Disease N Depression N Prostate Problems N Vascular Disease N Rash/Skin Condition N Amputation (location) N Parkinson's N Paralysis N Headaches/Migraines N Cardiac Pacemaker/defibrillator N Nerve Damage / Neuropathy N Arthritis N Sleep disorder/Insomnia N Infertility N Heart disease / Heart Attack N Crohn's Disease N HIV/AIDS N Stroke/TIA N Colon Problems N High Cholesterol N Serious Injuries N Kidney Disease N Memory Loss/Alzheimer's N Gallbladder disease N High blood pressure N Congestive heart failure N Falls N Alcohol Overuse N Blood Thinner Treatment N Hormone Replacement N Nervous Breakdown N Mcfarlane's Esophagus N Anemia N Urinary Problems N Colon Polyps N Gastritis N Hospitalizations (other than operations) N Back pain N Diabetes N Rheumatic Fever N Bleeding Disorder N Cardiac Arrhythmias /irregular heart rat e N Osteopenia/Osteoporosis N Anxiety/Stress N Asthma N Vision Problems N Erectile / Sexual Dysfunction N Ostomies (location) N Seizures N Jaundice N Sleep Apnea N Hepatitis N Past Reacton to Contrast Media N Cirrhosis N GERD/Ulcer N Chicken Pox N Allergies (other than meds) Y Gynecological HistoryNo gynecological history recorded. Obstetrics History GPAL:G 0 P 0 0 0 0 Past Encounters Encounter ID Performer Location Encounter Start Date Encounter Closed Date Diagnosis/Indication Diagnosis SNOMED-CT Code Diagnosis ICD10 Code Diagnosis Note [id number] James Weems MD [facility] [address] [address] [place] [address] 08/23/2019 07:59:57 08/23/2019 09:03:12 Dyspnea on exertion 75228449 R06.09 Patient's EKG today is normal and her exam is also benign. She also has low cardiac risk factors as well. Upon further questionin g, patient admits to a predominan tly sedentary lifestyle. I think the simplest explanatio n for her current symptom is likely to be deconditio fercho. For reassuranc e, I will order a treadmill stress test to evaluate this further. Risk, benefits, and alternativ es to stress test were discussed with the patient. {{He She*} } gave informed consent for testing. Heart murmur 07509573 R0 1.1 Patient has a soft heart murmur on exam today. This will be further evaluated with an echocardio gram as well. [id number] Ana Luisa Renee APRN [facility] [address] [address] [place] [address] 09/28/2019 07:38:00 09/28/2019 08:11:50 Dyspnea on exertion 32781380 R06.09 Stable: Dyspnea on exertion persists. Has not increased in severity. Patient did undergo a treadmill stress test which showed borderline [address] depression inferiorly . Given findings and persistent symptoms, recommend nuclear stress test to assess further. Atheroscle rosis of aorta 81494263 I70.0 Chronic: Atheroscle rotic plaquing of the ascending aorta seen on echo. Will obtain lipid panel. Repeat stress test ordered as above Mitral venancio ve regurgitation 30307874 I34.0 Chronic: Trace per echo. Continue to monitor conservati vely Tricuspid valve regurgitation 627219577 I07.1 Chronic: Trace per echo. Continue to monitor conservati vely [id number] An aLuisa Renee APRN [facility] [address] [address] [place] [address] 10/20/2019 08:24:23 10/20/2019 09:14:39 Dyspnea on exertion 48035827 R06.09 Stable: Dyspnea on exertion persists. Has not increased in severity. Recent treadmill stress test which showed borderline [address] depression inferiorly . She therefore underwent a nuclear stress test which showed a mild basal lateral reversible defect consistent with ischemia. Medical therapy has been advised as detailed above. Cardiovasc ular stress test abnormal 533180578 R94.39 Stable: Recent nuclear stress test revealed a mild basal lateral reversible defect consistent with ischemia. Medical therapy has been advised. She has been started on aspirin daily as well as beta-block er and statin therapy. She will return in 1 month for reassessme nt. Mixed hyperlipidemia 267 242800 E78.2 Chronic: Patient reports normal lipid panel in June 2019. I do not have records for review. Given her abnormal stress test as detailed above, statin therapy has been initiated. Will repeat lipids in 2 months. [id number] James Weems MD [facility] [address] [address] [place] [address] 11/24/2019 15:24:05 11/24/2019 16:08:19 Cardiovascular stress test abnormal 618405589 R94.39 I visualized the patient's {{nuclear stress test* ronda dmill stress test echoc ardiogram cardiac catheteriz ation [place] er monitor Zi o monitor CT coronary calcium score}} results personally and discussed the findings with the patient in detail. The apical defect is both small and mild. I think this is most likely due to shifting breast attenuatio n. Patient feels well without symptoms. Therefore, I would recommend continued medical therapy. Mitral venancio ve regurgitation 49462916 I34.0 I reviewed the patient's echocardio gram results personally and discussed the findings with the patient in detail. The {{aortic stenosis a ortic regurgitat ion mitral stenosis m itral regurgitat ion* tricu spid regurgitat ion}} is not clinically significan t at this time. Therefore, I would recommend continued surveillan ce. Mixed hyperlipidemia 267 802231 E78.2 Patient was started on atorvastat in because of abnormal stress test. A fasting lipid profile will be ordered to assess the efficacy of therapy. [id number] James Weems MD [facility] [address] [facility] [address] [place] [address] 07/25/2020 08:49:38 07/25/2020 09:32:12 Mixed hyperlipidemia 264534865 E78.2 Patient's most recent lipid profile {{last week earli er this month last month in September in October i n November in December in January in February in March* in April in May in June in July i n August}} was favorable after starting atorvastat in. Therefore, I will continue {{his her* }} current therapy. Mitral venancio ve regurgitation 97187543 I34.0 Patient's mitral regurgitat ion appears to be stable. {{He She*} } is asymptomat ic and I do not detect any signs or symptoms of congestive heart failure. Cardiovasc ular stress test abnormal 642931130 R94.39 Patient had mildly abnormal stress test earlier this year. Fortunatel y she is asymptomat ic. Therefore, I would continue current medical therapy. Overweight 615004984 E66 .3 Patient lost {{ 1 2 3* 4 5 6 7 8 9 10}} lb[s] since {{his her* }} last office visit. I congratula doris the patient on {{his her* }} efforts so far and encouraged {{him her* }} to {{continue maintain his current weight tobias torres her current weight*}}. [id number] James Weems MD [facility] [address] [address] [place] [address] 12/11/2020 08:40:45 12/11/2020 09:25:47 Mixed hyperlipidemia 003772555 E78.2 Patient has not had a lipid profile in some time. Therefore, I will order a fasting lipid profile along with surveillan ce LFT's and CPK to assess this further. Mitral venancio ve regurgitation 10981602 I34.0 Patient's mitral regurgitat ion appears to be stable. {{He She*} } is asymptomat ic and I do not detect any signs or symptoms of congestive heart failure. Overweight 451215621 E66 .3 Patient lost {{ 1 2 3* 4 5 6 7 8 9 10}} lb[s] since {{his her* }} last office visit. I congratula doris the patient on {{his her* }} efforts so far and encouraged {{him her* }} to {{continue maintain his current weight tobias ntain her current weight*}}. Cardiovasc ular stress test abnormal 405994821 R94.39 Patient had mildly abnormal stress test a year. Fortunatel y she is asymptomat ic. Therefore, I would continue current medical therapy. A repeat stress test will be considered at the next office visit. [id number] James Weems MD [facility] [address] [address] [place] [address] 07/29/2021 08:46:33 07/29/2021 09:28:44 Mixed hyperlipidemia 815707951 E78.2 Patient's most recent lipid profile {{in* last earlier this this} } {{September M arch December Augus t* Septemb er June w [place] tribe month week}} was {{favorabl e* at goal favor able in the absence of heart disease im proved after the addition of improve d after switching to improve d after the addition of ezetimibe improved after increasing the dose of at goal after starting}} . Therefore, I will continue {{atorvast atin* simv astatin ro suvastatin pravastat in lovasta tin ezetim ramirez Praule nt Repatha Vascepa f enofibrate }} {{1 2 5 10 20* 40 75 80 140 14 5}} mg {{daily* t wice daily ever y 2 weeks bijal y and ezetimibe 10 mg daily}}. Mitral venancio ve regurgitation 14399506 I34.0 Patient has a history of mitral regurgitat ion. In view of her new atrial fibrillati on, repeat echocardio gram will be ordered to assess for any progressio n. Cardiovasc ular stress test abnormal 894847867 R94.39 Patient had an abnormal stress test nearly 2 years ago. She also has new onset atrial fibrillati on. Therefore, I will order a nuclear stress test to evaluate this further. Risk, benefits, and alternativ es to stress test were discussed with the patient. {{He She*} } gave informed consent for testing. Paroxysmal atrial fibrillation 752514047 I48.0 Patient's EKG today shows new onset atrial fibrillati on of unclear duration. {{His Her* }} CHADS2-VAS C score is 4 which places the patient at risk for stroke, myocardial infarction , and other thromboemb olic events. Therefore, I would recommend anticoagul ation. Risk and benefits of anticoagul ation, including alternativ es, were explained to the patient. {{He She*} } understand s and agrees with the treatment plan. {{Coumadin Eliquis* Xarelto Pr adaxa Sava melody}} {{2.5 mg twice daily 5 mg twice daily* 15 mg daily 20 mg daily 75 mg twice daily 150 mg twice daily}} will be started and aspirin will be discontinu ed. Additional ly, she is also mildly tachycardi c on exam. Therefore, I will increase her metoprolol to 50 mg daily. [id number] James Weems MD [facility] [address] [facility] [address] [place] [address] 09/10/2021 09:28:59 09/10/2021 10:15:58 Cardiovascular stress test abnormal 658548241 R94.39 I {{reviewed * also reviewed v isualized also visualized }} the patient's nuclear stress test results personally and discussed the findings with the patient in detail. I was glad to see that it did not show any ischemia. This is an improvemen t when compared with her previous nuclear stress test in 2019, therefore, I would recommend {{medical therapy* n o additional cardiac work-up at this time}}. Mitral venancio ve regurgitation 89161811 I34.0 I {{reviewed also reviewed* visualized also visualized }} the patient's echocardio gram results personally and discussed the findings with the patient in detail. The {{aortic stenosis a ortic regurgitat ion mitral stenosis m itral regurgitat ion* tricu spid regurgitat ion}} is not clinically significan t at this time. Therefore, I would recommend continued surveillan ce. Paroxysmal atrial fibrillation 953382198 I48.0 Patient is doing well after starting {{Eliquis* Xarelto P radaxa Saad aysa Couma din}} {{2.5 5* 2 0 150 60}} mg {{daily tw ice daily* juan ly or as directed}} . {{He She*} } has not experience d any abnormal bleeding. Therefore, I will continue with current therapy. However, she is tachycardi c on exam today. Therefore, I will increase her metoprolol to 50 mg twice daily and order a Zio monitor to {{evaluate this further co rrelate with the patient's symptoms r ule out any occult arrhythmia s assess the overall rate control*}} . Mixed hyperlipidemia 267 325366 E78.2 Patient's most recent lipid profile {{in* last earlier this this} } {{September M arch December Augus t* Septemb er June w [place] month week}} was {{favorabl e* at goal favor able in the absence of heart disease im proved after the addition of improve d after switching to improve d after the addition of ezetimibe improved after increasing the dose of at goal after starting}} . Therefore, I will continue {{atorvast atin* simv astatin ro suvastatin pravastat in lovasta tin ezetim ramirez Praule nt Repatha Vascepa f enofibrate }} {{1 2 5 10 20* 40 75 80 140 14 5}} mg {{daily* t wice daily ever y 2 weeks bijal y and ezetimibe 10 mg daily}}. Overweight [id number] E66 .3 Patient lost {{ 1 2 3* 4 5 6 7 8 9 10}} lb[s] since {{his her* }} last office visit. I encouraged {{him her* }} to {{continue maintain his current weight tobias ntain her current weight*}}. [id number] James Weems MD [facility] [address] [address] [place] [address] 10/23/2021 08:49:20 10/23/2021 09:40:04 Mitral valve regurgitation [id number] I34.0 Patient's mitral regurgitat ion appears to be stable. {{He She*} } is asymptomat ic and I do not detect any {{signs or symptoms* symptoms}} of congestive heart failure. Mixed hyperlipidemia [id number] E78.2 Patient has not had a lipid profile in some time. Therefore, I will order a fasting lipid profile along with surveillan ce LFT's and CPK to assess this further. Paroxysmal atrial fibrillation [id number] I48.0 I {{reviewed * also reviewed}} the patient's Zio monitor results personally and discussed the findings with the patient in detail. It showed atrial fibrillati on with 16% burden. Patient's atrial fibrillati on rate is better controlled with the higher dose of metoprolol . Therefore, patient will continue with the current regimen of metoprolol 50 mg twice daily and anticoagul ation with Eliquis 5 mg twice daily. [id number] James Weems MD [facility] [address] [address] [place] [address] 08/05/2022 07:48:57 08/05/2022 16:38:11 Paroxysmal atrial fibrillation [id number] I48.0 Patient's paroxysmal atrial {{fibrilla tion* flut ter}} is under good control. {{He She*} } is {{anticoag ulated* do ing well after starting}} on {{Eliquis* Xarelto P radaxa Saad aysa warfa rin}} {{2.5 5* 1 0 15 20 15 0 60}} mg {{daily tw ice daily* juan ly or as directed}} . Overweight [id number] E66 .3 Patient did not lose weight since {{his her* }} last office visit. I had a discussion with the patient regarding the importance of weight reduction in the context of {{his her* }} cardiac condition. Dietary modificati on and increased physical activity were advised. Patient verbalize understand ing of this. Mixed hyperlipidemia [id number] E78.2 Patient reports having a lipid profile through {{his her* }} primary care physician' s office. I do not have those results for review. Therefore, I will defer treatment to the ordering provider. Mitral venancio ve regurgitation [id number] I34.0 Patient's mitral regurgitat ion appears to be stable. {{He She*} } is asymptomat ic and I do not detect any {{signs or symptoms* symptoms}} of congestive heart failure. [id number] James Weems MD [facility] [id number] [place] [address] 12/08/2022 12:10:27 12/09/2022 08:19:35 Paroxysmal atrial fibrillation [id number] I48.0 Patient has been experienci ng recurrent palpitatio ns every 4 days or so which sometimes can last hours. These episodes are uncomforta ble for her. Therefore, I will initiate treatment with flecainide 50 mg twice daily on a trial basis. Because of her bradycardi a, I will also reduce her metoprolol from 50 mg to 25 mg twice daily. Patient will continue anticoagul ation with Eliquis 5 mg twice daily. Overweight [id number] E66 .3 Patient did not lose weight since {{his her* }} last office visit. I had a discussion with the patient regarding the importance of weight reduction in the context of {{his her* }} cardiac condition. Dietary modificati on and increased physical activity were advised. Patient verbalize understand ing of this. Mixed hyperlipidemia [id number] [id number] E78.2 Patient reports having a lipid profile through {{his her* }} primary care physician' s office. I do not have those results for review. Therefore, I will defer treatment to the ordering provider. Mitral venancio ve regurgitation [id number] I34.0 Patient's mitral regurgitat ion appears to be stable. {{He She*} } is asymptomat ic and I do not detect any {{signs or symptoms* symptoms}} of congestive heart failure. [id number] James Weems MD [facility] [address] [address] [place] [address] 01/23/2023 11:15:26 01/23/2023 14:33:28 Paroxysmal atrial fibrillation [id number] I48.0 Patient's {{blood pressure t achycardia bradycard ia palpita tions* diz ziness velvet st pain}} {{improved * resolved did not improve is still elevated r emains under good control}} since {{his her* }} last office visit after {{the addition of the dose was increased the dose was decreased the discontinu ation of switchi ng to resumin g the addition of flecainide #}}. {{It is under good control* H owever, it is still elevated I t is still elevated P atient feels better}}. Therefore, I will {{continue the current dose of continue the current dose of and other medication s as prescribed in the medication list incre ase the dose of decreas e the dose of add con tinue the current dose of flecainide 50 mg bid#}}. Patient will continue anticoagul ation with Eliquis 5 mg twice daily. Mixed hyperlipidemia [id number] E78.2 Patient reports having a lipid profile through {{his her* }} primary care physician' s office. I do not have those results for review. Therefore, I will defer treatment to the ordering provider. Mitral venancio ve regurgitation [id number] I34.0 Patient's mitral regurgitat ion appears to be stable. {{He She*} } is asymptomat ic and I do not detect any {{signs or symptoms s ymptoms*}} of congestive heart failure. [id number] James Weems MD [facility] [address] [address] [place] [address] 08/06/2023 07:52:41 08/07/2023 08:02:15 Paroxysmal atrial fibrillation [id number] I48.0 Patient's paroxysmal atrial {{fibrilla tion* flut ter}} is under good control. {{He She P atient*}} is {{anticoag ulated* do ing well after starting}} on {{Eliquis* Xarelto P radaxa Saad aysa warfa rin}} {{2.5 5* 1 0 15 20 15 0 60}} mg {{daily tw ice daily* juan ly or as directed}} . I will also {{continue the current dose of continu e the current dose of and other medication s as prescribed in the medication list incre ase the dose of decreas e the dose of add con tinue the current dose of flecainide 50 mg bid#}} for rhythm control. Mixed hyperlipidemia [id number] E78.2 Patient's most recent lipid profile {{in* last earlier this this} } [facility] l [facility] July} } was {{favorabl e* at goal favor able with the exception of hypertrigl yceridemia favorable in the absence of heart disease im proved after the addition of improve d after starting i mproved after switching to improve d after the addition of ezetimibe improved after increasing the dose of at goal after starting}} . Therefore, I will continue {{atorvast atin* simv astatin ro suvastatin pravastat in lovasta tin Livalo ezetimibe Nexlizet Praulent R epatha Vas cepa fenof ibrate}} {{1 2 5 10 * 20 40 75 80 140 14 5 160 180/ 10 420}} mg {{daily* t wice daily ever y other day every 2 weeks ever y month bijal y and ezetimibe 10 mg daily}}. Mitral venancio ve regurgitation [id number] I34.0 Patient's mitral regurgitat ion appears to be stable. {{He She*} } is asymptomat ic and I do not detect any {{signs or symptoms* symptoms}} of congestive heart failure. [id number] James Weems MD [facility] [address] [facility] [address] [place] [address] 08/01/2024 09:42:13 08/02/2024 16:39:02 Mixed hyperlipidemia [id number] E78.2 Patient's most recent lipid profile {{in* last earlier this this} } {{week thu l January st Septemb er* Octobe r July} } was {{favorabl e* at goal favor able with the exception of hypertrigl yceridemia favorable in the absence of heart disease im proved after the addition of improve d after starting i mproved after switching to improve d after the addition of ezetimibe improved after increasing the dose of at goal after starting}} . Therefore, I will continue {{atorvast atin* simv astatin ro suvastatin pravastat in lovasta tin Livalo ezetimibe Nexlizet Praulent R epatha Vas cepa fenof ibrate}} {{1 2 5 10 * 20 40 75 80 140 14 5 160 180/ 10 420}} mg {{daily* t wice daily ever y other day every 2 weeks ever y month bijal y and ezetimibe 10 mg daily}}. Paroxysmal atrial fibrillation [id number] I48.0 Patient's paroxysmal atrial {{fibrilla tion* flut ter}} is under good control. {{He She P atient*}} is {{anticoag ulated* do ing well after starting}} on {{Eliquis* Xarelto P radaxa Saad aysa warfa rin}} {{2.5 5* 1 0 15 20 15 0 60}} mg {{daily tw ice daily* juan ly or as directed}} . I will also {{continue the current dose of continu e the current dose of and other medication s as prescribed in the medication list incre ase the dose of decreas e the dose of add con tinue the current dose of flecainide 50 mg bid#}} for rhythm control. Her EKG today shows sinus rhythm with a QTc of 421. 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 {{He* She} } has not had an echocardio gram {{in over a year in nearly 2 years in a couple years in several years sinc e since 2020#}}. {{Therefor e* Additio brigid Per patient's request}}, I will order an echocardio gram to {{evaluate this further as sess for any progressio n* assess for any improvemen t assess for any progressio n or improvemen t rule out any structural heart disease}}. Health Concerns Section Related Observation LastModified by Organization Detai ls LastModified Time None Recorded Concern Status LastModified by Organization Details LastModified Time None Recorded Advance Directives Directive None Recorded Payers Encounter Date Sequence Insurance Name Policy Number Policy Mayen Covered Member ID Mayen Member ID Guarantor Name 08/05/2022 1 [facility] (MEDICARE REPLACEMENT/A DVANTAGE - PPO) [id number] Carolina Serrano [id number] Carolina Serrano 12/08/2022 1 [facility] (MEDICARE REPLACEMENT/A DVANTAGE - PPO) [id number] Carolina Serrano [id number] Carolina Serrano 01/23/2023 1 [facility] (MEDICARE REPLACEMENT/A DVANTAGE - PPO) [id number] Carolina Serrano [id number] Carolina Serrano 08/06/2023 1 [facility] (MEDICARE REPLACEMENT/A DVANTAGE - PPO) [id number] Carolina Serrano [id number] Carolina Serrano 08/01/2024 1 [facility] (MEDICARE REPLACEMENT/A DVANTAGE - PPO) [id number] Carolina Serrano [id number] Carolina Serrano Notes Date Note Type Note Provider Name and Address Organization Details Recorded Time 08/05/2022 text/html Patient is here for follow-up of {{coronary artery disease hypertension p aroxysmal atrial fibrillation/flutter* paroxysmal supraventricular tachycardia hyperlipid emia cardiomyopathy co ngestive heart failure lower extremity edema aortic regurgitation mitral regurgitation aortic stenosis cardiac pacemaker cardiac defibrillator aortic valve replacement mitral valve replacement}}. Since the patient's last office visit {{in* last a several e arlier this a couple of}} {{month week year week s ago year ago September* November J lisbeth April O ctober July er}}, {{he she*}} has been feeling well from a cardiac standpoint. Patient denies having any chest pain, shortness of breath, orthopnea, palpitations, or syncope. Patient has no new cardiac complaints today. James Weems MD [address], [place], [address], [facility], [facility] 08/05/2022 08:24:34 12/08/2022 text/html Patient is here for follow-up of {{coronary artery disease hypertension p aroxysmal atrial fibrillation/flutter* paroxysmal supraventricular tachycardia hyperlipid emia cardiomyopathy co ngestive heart failure lower extremity edema aortic regurgitation mitral regurgitation aortic stenosis cardiac pacemaker cardiac defibrillator aortic valve replacement mitral valve replacement}}. Since the patient's last office visit {{in last* a several e arlier this a couple of}} {{month week year week s ago year ago September M arch December Ju ly April Oc tober [facility]}}, {{he she*}} has been feeling well from a cardiac standpoint. Patient denies having any chest pain, shortness of breath, orthopnea, palpitations, or syncope. However, she has been having intermittent palpitations every 4 days or so. James Weems MD [address], [place], [address], [facility], [place] 12/08/2022 13:52:30 01/23/2023 text/html This visit was conducted via our telehealth video visit service.Provider location: {{in office* at home If other - freetype location}}Patient location: {{at home address on file* in provider's office If other - freetype location}}Visit Participants in addition to provider and patient: {{none* free type names of additional participants & their relationship to patient}}Patient has given verbal consent to telehealth visit. Patient is here for follow-up of {{coronary artery disease hypertension p aroxysmal atrial fibrillation/flutter* paroxysmal supraventricular tachycardia hyperlipid emia cardiomyopathy co ngestive heart failure lower extremity edema aortic regurgitation mitral regurgitation aortic stenosis cardiac pacemaker cardiac defibrillator aortic valve replacement mitral valve replacement}}. Since the patient's last office visit {{in* last a several e arlier this a couple of}} {{month week year week s ago ago September M arch* December J lisbeth April O ctober July [facility]}}, {{he she*}} has been feeling well from a cardiac standpoint. Patient denies having any chest pain, shortness of breath, orthopnea, palpitations, or syncope. Patient has no new cardiac complaints today. James Weems MD [address], [place], [address], [facility], [facility] 01/23/2023 14:17:58 08/06/2023 text/html Patient is here for follow-up of {{coronary artery disease hypertension p aroxysmal atrial fibrillation/flutter p aroxysmal supraventricular tachycardia hyperlipid emia cardiomyopathy co ngestive heart failure lower extremity edema aortic regurgitation mitral regurgitation* aortic stenosis cardiac pacemaker cardiac defibrillator aortic valve replacement mitral valve replacement}}. Since the patient's last office visit {{in* last a several e arlier this a couple of}} {{month week year week s ago year ago September O ctober July er}}, {{he she*}} has been feeling well from a cardiac standpoint. Patient denies having any chest pain, shortness of breath, orthopnea, palpitations, or syncope. Patient has no new cardiac complaints today. James Weems MD [address], [place], [address], [facility], [facility] 08/13/2023 11:32:40 08/01/2024 text/html QUALITY MEASURE QUESTIONNAIRE Has the Patient previously received any type of colorectal cancer screener Yes Please confirm which of the following colorectal screeners the Patient has received in the past Colonoscopy Please enter the date you received your last Colonoscopy 03/13/2014 Colonoscopy Result Negative Imported from [employer] on 08/01/2024 Patient is here for follow-up of {{coronary artery disease hypertension p aroxysmal atrial fibrillation/flutter* paroxysmal supraventricular tachycardia hyperlipid emia cardiomyopathy co ngestive heart failure lower extremity edema aortic regurgitation mitral regurgitation aortic stenosis cardiac pacemaker cardiac defibrillator aortic valve replacement mitral valve replacement}}. Since the patient's last office visit {{in last a* several e arlier this a couple of}} {{month week year week s ago year ago* September lisbethapril O ctober July er}}, {{he she*}} has been feeling well from a cardiac standpoint. Patient denies having any chest pain, shortness of breath, orthopnea, palpitations, or syncope. Patient has no new cardiac complaints today. James Weems MD [address] [address], [place], [address], [facility] - [facility], [facility] 08/01/2024 10:15:36 OBGyn Episode No OBEpisode recorded.
--- OUTSIDE RECORDS SUMMARY | 2025-01-17 16:35 | XMS_ITS | Data Portability ---
Author Organization [facility] [place] Address [address] [place] [address] Care Team Providers Care Social Media Content Manager Name Role Phone GWYN BILL Primary Care Provider Assessment Encounter Date Assessment Date Assessment LastModified by Organization Details LastModified Time 01/10/2021 01/10/2021 Annual gynecological exam performed. Patient will come back in a year unless there are new symptoms. [email or web address] Not available 01/10/2021 11:33:09 01/05/2024 01/05/2024 Annual gynecological exam performed. Patient will come back in a year unless there are new symptoms. Not available 01/05/2024 11:38:44 Plan of Treatment Reminders Order Date Submit Date Provider Last Modified By Organization Details Last Modified Time Details Appointments None recorded. Lab None recorded. Referral None recorded. Procedures None recorded. Surgeries None recorded. Imaging MAMMO, screening, bilateral [address] (Imaging), [address] [place] [address], [address], 13:39:28 US, pelvis 2021 022 [email or web address] [place], [address], [place], [address], 19:55:07 US, transvagina l 2021 022 [email or web address] [place], [address], [place], [address], 19:55:07 US, pelvis, complete 2021 022 [place], [address], [address], [place], [address], 11:46:24 DEXA, axial skeleton + vertebral [facility] [address], [place], [address], 14:27:11 Medication Orders Premarin 0.625 mg/gram vaginal cream 2021 022 [facility], [address] [place], [address], 4 11:48:41 Patient TargetsNo targets recorded. Patient InstructionsNo instructions recorded. Reason for Referral None Reported. Results Created Date Observation Date Name Description Value Unit Range Abnormal Flag Note LastModifiedBy Organization Detail LastModifiedTime 06/10/20 21 06/10/2021 MAMMO , diagn ostic , tomos ynthe sis, bilat eral No observ ation record ed. TORSTEN Not Available 2020 18:17:02 06/11/20 21 06/10/2021 DEXA, axial skele ton + verte bral fract ure asses sment No observ ation record ed. [facility] (Imaging) [address] [place], [address], 06/12/2021 08:42:57 08/20/20 22 08/20/2022 imagi ng/di agnos tic resul t No observ ation record ed. TORSTEN [place] [address], [place], [address], 08/26/2022 14:30:30 08/20/20 22 08/20/2022 US, pelvi s No observ ation record ed. [email or web address] [place] [address], [place], [address], 08/20/2022 13:18:32 08/20/20 22 08/20/2022 US, trans vagin al No observ ation record ed. [email or web address] [place] [address], [place], [address], 08/20/2022 13:18:23 08/29/20 22 08/29/2022 MAMMO , scree fercho, tomos ynthe sis, bilat eral, w/ CAD No observ ation record ed. [address], [address], 08/30/2022 13:13:05 Result Notes None recorded. Problems Name Problem SNOMED Code Status Onset Date Resolution Date Notes Provider Name and Address Organization Details Recorded Time High grade squamous intraepi thelial lesion on cervical Papanico laou smear 72607747088 107 Completed 201508/13/2022 High grade intrepit h lesion cyto smr crvx (HGSIL); Recorded Elsewher e: No Locat ion: [facility] S ource: EHR Dough Puncher gretchen: N Ruma ce ID: 0001 Grey lable Time: 09:30:[address] [facility] 2 12:32:32 Speciali zed medical examinat ion Completed 201208/13/2022 Gynecolo gical Examinat ion;Escobar rded Elsewher e: No Locat ion: [facility] S ource: EHR Dough Puncher gretchen: N Brinati ce ID: 0001 Grey lable Time: 10:00:[address] [facility] 2 12:32:32 Screenin g for malignan t neoplasm of rectum Completed 201408/13/2022 Screenin g for malignan t neoplasm s of the rectum;R ecorded Elsewher e: No Locat ion: Lizz lema [facility] S ource: EHR Dough Puncher gretchen: N Practi ce ID: 0001 Grey lable Time: 10:00:00 AM Patti Kaur [facility] 2 12:32:[address] Concept Completed 201608/13/2022 Encntr for general adult medical exam w/o abnormal findings ;Recorde d Elsewher e: No Locat ion: Yasmin torey [facility] S ource: EHR Dough Puncher gretchen: N Practi ce ID: 0001 Grey lable Time: 10:30:00 AM Patti Kaur [facility] 2 12:32:[address] Concept Completed 201508/13/2022 Encntr for ob/gyn doctor exam (general ) (routine ) w/o abn findings ;Recorde d Elsewher e: No [facility] S ource: EHR Dough Puncher gretchen: N Practi ce ID: 0001 Grey lable Time: 09:30:00 AM Patti Kaur [facility] 2 12:32:32 Microsco pic hematuri a [id number] Completed 201508/13/2022 Other microsco pic hematuri a;Record ed Elsewher e: No [facility] Dough Puncher gretchen: N Practi ce ID: 0001 Grey lable Time: 09:30:00 AM Patti Kaur [facility] 2 12:32:32 Screenin g for malignan t neoplasm of cervix Completed 201008/13/2022 Pap Smear;Pr actice ID: 0001 Patti Kaur [facility] 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 2 12:32:32 Atypical squamous cells of undeterm ined signific ance on cervical Papanico laou smear [id number] Completed 201108/13/2022 Pap Abnormal ASCUS;Pr actice ID: 0001 Patti Kaur [facility] 2 12:32:32 Adult health examinat ion Completed 201208/13/2022 Routine general medical examinat ion at a [facility] facility ;Practic e ID: 0001 Patti Karu [facility] 12:32:32 Low risk human papillom avirus deoxyrib onucleic acid detected in specimen from cervix [id number] Completed 201708/13/2022 Cervical low risk HPV DNA test positive ;Recorde d hCeriseher e: No Locat ion: [facility] S ource: EHR Dough Puncher gretchen: N Practi ce ID: 0001 Grey lable Time: 08:30:00 AM Patti Kaur [facility] 2 12:32:32 Problem Notes None recorded. Procedures Surgical History Date Name Laterality Status Provider Name and Address Organization Details Recorded Time 07/11/20 21 Date of Last Mammogram completed [facility] 01/05/2024 11:47:26 06/08/20 19 Date of Last Pap Smear completed [facility] 01/09/2021 17:01:24 05/14/20 16 Colposcopy completed [facility] 08/13/2022 13:53:10 03/05/20 14 Date of Last Colonoscopy completed [facility] 01/05/2024 11:47:26 02/27/20 14 completed [facility] 08/18/2022 11:02:50 09/21/19 14 colonoscopy completed [facility] 01/09/2021 17:22:20 09/21/19 08 hysteroscopy [address] Razia Fernandez [facility] 01/09/2021 17:22:58 Imaging Results Imaging Date Name Status LastModified by Organization Details LastModified Time 06/10/2021 DEXA, axial skeleton + vertebral fracture assessment completed [facility]) [address] [place] [address], [address], 06/12/2021 08:42:57 06/10/2021 MAMMO, diagnostic, tomosynthesis, bilateral completed [place] Information not available 06/14/2021 18:17:02 08/20/2022 imaging/diagnost ic result completed [place] [address], [place], [address], 08/26/2022 14:30:30 08/20/2022 US, pelvis completed [email or web address] [place] [address], [place], [address], 08/20/2022 13:18:32 08/20/2022 US, transvaginal completed [email or web address] [place] [address], [place], [address], 08/20/2022 13:18:23 08/29/2022 MAMMO, screening, tomosynthesis, bilateral, w/ CAD completed [facility]) [address] [place], [address], 08/30/2022 13:13:05 Procedure Notes None recorded. Medical Equipment None Reported. Allergies No known drug allergies Medications Name Sig Start Date Stop Date Status Note LastModified by Organization Details LastModified Time atorvasta tin 20 mg tablet active Not Available Not Available Not Available medroxypr ogesteron e 2.5 mg tablet TAKE ONE TABLET BY MOUTH ONCE DAILY 01/10 completed Prescrib ed Elsew e: No Locat ion: [facility] M odify By: russel pratt DateTime : 01/06/20 10:13:10 AM Not Available Not Available Not Available cephalexi n 250 mg capsule TAKE 1 CAPSULE ORALLY EVERY 8 HOURS 08/13 completed Not Available Not Available Not Available ondansetr on HCl 4 mg tablet TAKE 1 TABLET ORALLY FOUR TIMES DAILY NEEDED FOR NAUSEA AND VOMITING 08/18 completed Not Available Not Available Not Available flecainid e 50 mg tablet active Not Available Not Available Not Available estradiol 0.5 mg tablet TAKE ONE TABLET BY MOUTH ONCE DAILY 01/10 completed Prescrib ed Elsewher e: No Locat ion: [facility] le[facility] odify By: russel pratt DateTime : 06/08/20 09:30:00 AM Not Available Not Available Not Available metoprolo l succinate ER 25 mg tablet,ex tended release 24 hr active Not Available Not Available Not Available methylpre dnisolone 4 mg tablets in a dose pack TAKE 6 TABLETS ON DAY 1 DIRECTED ON PACKAGE AND DECREASE BY 1 TAB EACH DAY FOR A TOTAL OF 6 DAYS 01/10 completed Not Available Not Available Not Available metronida zole 0.75 % topical gel APPLY TO RED AREAS ON FACE TWICE DAILY 08/18 completed Not Available Not Available Not Available Premarin 0.625 mg/gram vaginal cream Insert 0.5mg vaginall y nightly x 14 nights; then, twice weekly at bedtime for maintena nce. 01/04 completed Not Available Not Available Not Available nitrofura ntoin monohydra te/macroc rystals 100 mg capsule TAKE 1 CAPSULE BY MOUTH TWICE DAILY FOR 7 DAYS 08/13 completed Not Available Not Available Not Available atorvasta tin 01/04 completed Not Available Not Available Not Available biotin 08/18 completed Not Available Not Available Not Available Vitamin D active Not Available Not Latesha ilable Not Available PreserVis ion AREDS 01/04 completed Not Available Not Available Not Available metoprolo l park-hydroc hlorothia z 01/04 completed Not Available Not Available Not Available Eliquis 5 mg tablet TAKE 1 TABLET BY MOUTH TWICE A DAY active Not Available Not Available No t Available potassium chloride ER 20 mEq tablet,ex tended release TAKE 1 TABLET BY MOUTH EVERY DAY 08/18 completed Not Available Not Available Not Available Vitals Date Recorded Body height Body mass index (BMI) Body weight Systolic blood pressure Diastolic blood pressure Provider Name and Address Organization Details Last Updated DateTime 01/10/2021 160.02 cm 26.6 kg/m2 79368.86 g 144 mm[Hg] 82 mm[Hg] Razia Rodriguezmacario [facility] 11:42:35 Date Recorded Body height Body mass index (BMI) Body weight Provider Name and Address Organization Details Last Updated DateTime 08/18/2022 160.02 cm 27.1 kg/m2 47910.63 g Patti Kaur [facility] 08/18/2022 11:02:20 Date Recorded Systolic blood pressure Diastolic blood pressure Provider Name and Address Organization Details Last Updated DateTime 08/18/2022 126 mm[Hg] 74 mm[Hg] Jessica Lindasy, [facility]- [address], [place], [address], [facility] 08/18/2022 11:37:00 Date Recorded Body height Provider Name an d Address Organization Details Last Updated DateTime 11/11/2022 160.02 cm Mima Jain [facility] 11/11/2022 10:14:53 Date Recorded Body height Body mass index (BMI) Body weight Systolic blood pressure Diastolic blood pressure Provider Name and Address Organization Details Last Updated DateTime 01/05/2024 160.02 cm 27.6 kg/m2 87839.41 g 105 mm[Hg] 67 mm[Hg] Patti Lynne [facility] 11:46:31 Social History Question Answer Notes LastModified by Organizat ion Details LastModified Time Tobacco Smoking Status Never Smoker Alexander basurto, [facility] 11/11/2022 10:12:58 Do You Have An Advance Directive? Yes Information n ot available 08/18/2022 What Is Your Level Of Alcohol Consumption? Occasional Information not available 08/18/2022 How Many Years Have You Consumed Alcohol? 20 Information not available 01/05/2024 Are You Blind Or Do You Have Difficulty Seeing? No Information n ot available 08/18/2022 What Is Your Level Of Caffeine Consumption? None Information not available 08/18/2022 How Much Tobacco Do You Chew? None Information not available 01/05/2024 In The 14 Days Before Symptom Onset, Have You Had Close Contact With A Laboratory-confirm ed COVID-19 While That Case Was Ill? No Information n ot available 08/18/2022 In The 14 Days Before Symptom Onset, Have You Had Close Contact With A Person Who Is Under Investigation For COVID-19 While That Person Was Ill? No Information not available 01/05/2024 Have You Been To An Area Known To Be High Risk For COVID-19? No Information not available 08/18/2022 Are You Deaf Or Do You Have Serious Difficulty Hearing? No Information not available 08/18/2022 What Type Of Diet Are You Following? REGULAR Information n ot available 08/18/2022 What Is The Highest Grade Or Level Of School You Have Completed Or The Highest Degree You Have Received? [id number] Information not available 01/05/2024 What Is Your Occupation? Retired Information not available 08/18/2022 Are There Any Guns Present In Your Home? No Information not available 08/18/2022 Do You Use Protection During Sex? No Information not available 01/05/2024 Do You Use Your Seat Belt Or Car Seat Routinely? Yes Information not available 08/18/2022 Do You Have Smoke And Carbon Monoxide Detectors In Your Home? Yes Information not available 08/18/2022 How Much Tobacco Do You Smoke? No Information not available 08/18/2022 Do You Feel Stressed (tense, Restless, Nervous, Or Anxious, Or Unable To Sleep At Night)? [id number] Information not available 08/18/2022 Do You Use Any Illicit Or Recreational Drugs? No [email or web address] Information not available 01/10/2021 Do You Use Sunscreen Routinely? Yes Information not available 01/05/2024 Have You Used IV Drugs? No Information not available 08/18/2022 Sex: Female Functional Status Question Answer Note LastModified by Organizat ion Details LastModified Time Do you have difficulty walking or climbing stairs? No [email or web address] Information not available 11/11/2022 Are you able to walk? YESWOREST Information not available 08/18/2022 Are you able to care for yourself? Yes [email or web address] Information not available 11/11/2022 Do you have difficulty dressing or bathing? No [email or web address] Information not available 11/11/2022 What is your exercise level? Moderate Information not available 01/05/2024 Mental Status None recorded. Family History Relationship Description Onset Age of this Age Resolved Age Notes LastModified by Organization Details LastModified Time Maternal Grandmother Diabetes mellitus Not available 2023 11:47:25 Maternal Grandmother Heart disease CHF Not available 2023 11:47:26 Mother Asthma Not available 11:47:26 Mother Disorder of thyroid gland Not available 2023 11:47:26 Mother Hypertensive disorder Not available 2023 11:47:26 Medical History Condition Response Heart Problems Y Hypertension Y Gynecological History Statement/Question Response Abnormal Pap Y Date of Last Mammogram 07/11/2021 N On BCP's at Conception? N STIs/STDs N Was last menstrual period normal N HPV Vaccine N Colposcopy 05/14/2016 Duration of Flow (days) 7 Current Control Method None Age at First Child 18 If Post Menopausal, Age at Menopause 52 Date of control 07[birth year]02/1973 Date of Last Colonoscopy 03/05/2014 Frequency of Cycle (Q days) 28 Sexually Active? Y Date of DEXA bone scan 06/10/2021 Age of first menstrual cycle 13 Date of Last Pap Smear 06/08/2019 Sexual Problems? Y LMP Unknown 02/26/2014 Y Obstetrics History GPAL:G 2 P 0 0 1 1 Type Value Induced 1 Living 1 Total 2 Past Encounters Encounter ID Performer Location Encounter Start Date Encounter Closed Date Diagnosis/Indication Diagnosis SNOMED-CT Code Diagnosis ICD10 Code Diagnosis Note [id number] [facility] [place] [address] [address] 01/10/2021 11:28:17 01/10/2021 12:12:21 Gynecologic examination 28762199 Z01.419 Take Calcium with Vitamin D 12-1500mg daily. Do monthly self breast exams. It is advised to get annual flu shot in the fall and she could obtain at [facility] or [facility] care clinic. If you haven't received the Tdap vaccine in the last 10 years you should obtain one as well. Have mammogram yearly, bone density every 2-3 years and colonoscop y every 5-10 years depending on findings and history. Engage in daily exercise of low impact aerobic exercise 45-60 minutes 4-5 times weekly. Avoid tobacco and illicit drugs as well as using moderation with alcohol intake less than 1-2 8 oz beverages daily. This lifestyle behavior pattern will lead to less health conditions and longer life span. If BMI greater than 25 weight watchers or dietary consult advised. Questions have been answered. Patient appears to understand instructio ns, but if you have any further questions call or respond to this email Last pap/hpv 2019 wnl USPSTF recommends against screening for cervical cancer in women older than 65yo who have had adequate prior screening & are not otherwise at high risk for cervical cancer. Mammo ordered Dexa ordered last done 05/2019 Advise to check in with PCP for BP/med check of HTN. Postmenopa usal osteopenia [id number] M85.80 [id number] Jessica Lindsay [facility] [address] [address] 08/18/2022 10:48:56 08/18/2022 11:46:24 Pain in pelvis 55230723 R10.2 Today we agreed to update [employer] US to r/o ob/gyn doctor related issues.If wnl, other possibilit ies are GI or muscular. Time spent in visit is a total of 26 mins with at least 50% of visit consisting of counseling and review of plan of care. Dyspareunia 45055649 N94 .10 Vag dryness/Dy spareunia/ Prevention UTI.Discus sed vag-e therapy for these issues.Wou ld like to trial this medication .Virtual med check x 3mos. Counseled on medication R/B's, Most common side effects, & use. All questions were answered to patient satisfacti on. Counseled on the following: Vaginal Dryness: Bothersome symptoms of the vagina and vulva (outer lips of the vagina) increase during and after the menopause transition or may start several years after menopause. The decrease in estrogen with menopause is a major contributo r to vaginal dryness, itching, burning, discomfort , and pain during intercours e or other sexual activity. Vaginal atrophy is the medical term that describes these changes. The genitourin flaco syndrome of menopause includes bothersome vaginal atrophy often combined with urinary symptoms. Vaginal atrophy may significan tly affect your quality of life, sexual satisfacti on, and relationsh ip with your partner. Unlike hot flashes, which generally improve with time, vaginal symptoms typically worsen with time because of aging and a prolonged lack of estrogen. Vaginal estrogen therapy An effective and safe treatment, low-dose local estrogen is applied directly to the vagina to restore vaginal health and relieve vaginal dryness and discomfort with sexual activity. Improvemen ts usually occur within a few weeks, although complete relief may take several months. This even may be an option for women with a history of breast or uterine cancer but only after careful considerat ion of risks and benefits with a healthcare provider and oncologist . Governmen t-approved low-dose vaginal estrogen products are available by prescripti on as vaginal creams (used two or three nights/wee k), a vaginal estradiol tablet (used twice/week ), and an estradiol vaginal ring (changed every 3 months). All are highly effective. You may wish to try several different forms and choose the one you prefer. Standard doses of estrogen therapy provided to treat hot flashes also treat vaginal dryness, although some women still benefit from additional low-dose vaginal estrogen treatment. If only vaginal symptoms are present, low doses of estrogen applied to the vagina are recommende d. Resources: https://mack boone.astrid e.org/docs /default-s ource/for- women/mn-v aginal-dry ness.pdf [id number] Susan Whittington [place] [address] [address] 08/20/2022 09:53:55 08/20/2022 11:47:58 Pain in pelvis 71041743 R10.2 [id number] Jessica Lindsya , [facility] [address],[place] [address] 11/11/2022 10:12:11 11/11/2022 11:06:03 Dyspareunia 68926576 N94.10 Med check todayFelt the premarin helped but two factors are keeping her from wanting to continue.1 . It's messy2. Cost >$100 She would be open to trial of another product if affordable & possibly less messy .We discussed suppositor ies/Tablet s as other options.BP is stable no issues.Jose Maria l continue VCG's in the meantime.W ill reach out with formulary options that are covered on her plan and we can see what she can try. Agreeable to plan of care. Total time of virtual-ZO OM visit was approx 15 mins with >50% consisting of counseling , education of patient's plan of care. [id number] Jessica Lindsay , [facility] [address],[place] [address] 01/05/2024 11:35:07 01/05/2024 12:00:01 Gynecologic examination 55300486 Z01.419 Take Calcium with Vitamin D 12-1500mg daily. Do monthly self breast exams. It is advised to get annual flu shot in the fall and she could obtain at [facility] or [facility] care clinic. If you haven't received the Tdap vaccine in the last 10 years you should obtain one as well. Have mammogram yearly, bone density every 2-3 years and colonoscop y every 5-10 years depending on findings and history. Engage in daily exercise of low impact aerobic exercise 45-60 minutes 4-5 times weekly. Avoid tobacco and illicit drugs as well as using moderation with alcohol intake less than 1-2 8 oz beverages daily. This lifestyle behavior pattern will lead to less health conditions and longer life span. If BMI greater than 25 weight watchers or dietary consult advised. Questions have been answered. Patient appears to understand instructio ns, but if you have any further questions call or respond to this email Last pap/hpv 2019 wnl USPSTF recommends against screening for cervical cancer in women older than 65yo who have had adequate prior screening & are not otherwise at high risk for cervical cancer. STD Screen declined Genetic Screen discussed Colon Screen UTD PCP Dexa Screen PCP Routine Labs PCP Screening mammography 24 915331 Z12.31 Health Concerns Section Related Observation LastModified by Organization Detai ls LastModified Time None Recorded Concern Status LastModified by Organization Details LastModified Time None Recorded Advance Directives Directive Y: Payers Encounter Date Sequence Insurance Name Policy Number Policy Mayen Covered Member ID Mayen Member ID Guarantor Name 01/10/2021 1 [facility] (MEDICARE REPLACEMENT/A DVANTAGE - PPO) [id number] Carolina Maldonadoo [id number] Carolina Serrano 08/18/2022 1 [facility] (MEDICARE REPLACEMENT/A DVANTAGE - PPO) [id number] Carolina Maldonadoo [id number] Carolina Maldonadoo 08/20/2022 1 [facility] (MEDICARE REPLACEMENT/A DVANTAGE - PPO) [id number] Carolina Maldonadoo [id number] Carolina Maldonadoo 11/11/2022 1 [facility] (MEDICARE REPLACEMENT/A DVANTAGE - PPO) [id number] Carolina Maldonadoo [id number] Carolina Maldondaoo 01/05/2024 1 [facility] (MEDICARE REPLACEMENT/A DVANTAGE - PPO) [id number] Carolina Maldonadoo [id number] Carolina Serrano Notes Date Note Type Note Provider Name and Address Organization Details Recorded Time 01/10/2021 text/html Annual Technical Healthcare Consultant Post-MenopausalRep orted bypatient.Menopaus al Symptoms:no menopausal symptoms; normal vaginal lubrication Vaginal Bleeding:history of menopause having occurred; no history of post menopausal bleeding Urinary Symptoms:no hematuria; no incontinence; no nocturia; no urinary frequency Vulva:no genital lesion; no vulvar atrophy Vagina:normal vaginal discharge; no vaginal atrophy Breast:no breast lump; no nipple discharge; no breast pain Sexual Complaints:no sexual complaints Psychological Symptoms:no depression; no anxiety Preventive Measures:encourage regular mammograms starting age 40; encourage self breast examination; encourage regular exercise; encourage no tobacco use; needs to schedule mammogram; needs to schedule colonoscopy; needs to schedule bone density Jessica Lindsay, JOCELYNN-BC [address], [place], [address], [facility] 01/10/2021 12:07:22 08/18/2022 text/html Started January 2022Lower right pelvic areaDull ache local-stays in this areaCouple of minutesDoes not have to take meds for itRandomOnce every 2wksTriggers: sometimes with activityBM: [id number] AUB, dyspareuniaFeels fullness but this feeling does not stay present 3wks ago Urgent careThoughts had UTI+UTITreatedWent to PCP-yearly Vaginal dryness/Dyspareuni a.Wants to discuss vag estrogen Jessica Lindsay [facility] [address], [place], [address], [facility] 08/18/2022 11:38:43 11/11/2022 text/html Phone Consent: This visit was completed via Virtual Visit Zoom due to the restrictions of the COVID-19 pandemic; all issues as below were discussed and addressed but no physical exam was performed. If it was felt that the patient should be evaluated in clinic then they were directed there. The patient verbally consented to this virtual Zoom visit. Here today for tele-health visit for med check of Premarin vaginal therapy. VICTOR MANUEL Butler [address], [place], [address], [facility] 11/11/2022 10:38:03 01/05/2024 text/html Annual Technical Healthcare Consultant Post-MenopausalRep orted bypatient.Menopaus al Symptoms:no menopausal symptoms; normal vaginal lubrication Vaginal Bleeding:history of menopause having occurred; no history of post menopausal bleeding Urinary Symptoms:no hematuria; no incontinence; no nocturia; no urinary frequency Vulva:no genital lesion; no vulvar atrophy Vagina:normal vaginal discharge; no vaginal atrophy Breast:no breast lump; no nipple discharge; no breast pain Sexual Complaints:no sexual complaints Psychological Symptoms:no depression; no anxiety Preventive Measures:encourage regular mammograms starting age 40; encourage self breast examination; encourage regular exercise; encourage no tobacco use; needs to schedule mammogram; history of recent colonoscopy VICTOR MANUEL Butler [address], [place], [address], [facility] 01/05/2024 11:59:56 OBGyn Episode Ob Episode Information Episode Created Date Number of Fetuses Patient Bloodtype Patient rh Status Prepregnancy Weight lbs Domestic Partner Domestic Partner Phone Father Name Toe Stapler Status 01/10/20 21 1 CLOSED Fetus Data First Name Last Name Admitted to NICU Weight (g) Sex Living Outcome Pediatric Complications Fetus ID Race Codes Race Delivery Type [id number] Vaginal Delivery Reyes Calculation Initial Reyes Date Initial Exam Date Initial Exam Provider Initial Ultrasound Date Last Menstrual Period Date Ultra Sound Weeks Gestation 0 Eighteen To Twenty Week Reyes Update Ultra Sound Date Fundal Height At Umbil Quickening Date Ultra Sound Latest Weeks Gestation Final Reyes Confirmed By Final Reyes Confirmed Date Final Reyes Date Ultra Sound Latest Days Gestation 0 0 Menstrual History Last Menstrual Date Menses Monthly On Bcp Conception Prior Menses Frequency Hcg Plus Date Menarche Onset Age Delivery Information Delivery Date Delivery Type Labor Anesthesia Weeks Gestation Incision Type Labor Labor Length Hrs Delivered By Post Complications Tubal Sterilization Discharge Date Comments 3 Discharge Information Feeding Method Contraceptive Method Maternal HG B and HCT Levels
--- OUTSIDE RECORDS SUMMARY | 2025-01-17 16:36 | XMS_ITS | Referral Summary ---
Author Organization [facility] [address] Address [address] [place] [address] Care Team Providers Care Employee Relation Manager Name Role Phone Ryan Meyers MD Primary Care Provider [phone] James Weems MD Unavailable [phone] Encounters Date Type Department Care Team Description 01/12/2025 9:30 AM CDT Office Visit [facility] Card[facility] [address] [place] [id number] Jeanmarie Gonzalez MD Paroxysmal atrial fibrillation (HCC) (Primary Dx); Mixed hyperlipidemia from Last 3 Months Allergies Active Allergy Reactions Criticality Noted Date Comments Hay Fever And Allergy Relief Eye irritation,Headache,Itching ,Redness,Sneezing Low 01/12/2025 Medications Eliquis 5 mg tablet 01/10/2023 Active atorvastatin (LIPITOR) 20 mg tablet 01/10/2023 Active flecainide (TAMBOCOR) 50 mg tablet 02/16/2023 Active metoprolol XL (TOPROL-XL) 25 mg extended release tablet 02/16/2023 Active vit C,Q-Dn-epdfm-lutei n-zeaxan 250-90-40-1 mg capsule Active cholecalciferol (D3-5000) 5,000 unit capsule Active Active Problems Problem Noted Date Diagnosed Date Hyperlipidemia 01/08/2024 Paroxysmal atrial fibrillation 02/27/2023 Paroxysmal supraventricular tachycardia 02/28/20 23 Social History Tobacco Use Types Packs/Day Years Used Date Smoking Tobacco: Never Passive Smoke Exposure: Past Smokeless Tobacco: Never Tobacco Cessation:Counseling Given: Not Answered Comments Unknown Sex and Gender Information Value Date Recorded Sex Assigned at Not on file Legal Sex Female 9:13 AM CDT Gender Identity Female 01/04/2024 2:33 PM CDT Sexual Orientation Straight 01/04/2024 2: 33 PM CDT Last Filed Vital Signs Vital Sign Reading Time Taken Comments Blood Pressure 122/72 01/12/2025 9:23 AM CDT Pulse 59 01/12/2025 9:23 AM CDT Temperature - - Respiratory Rate - - Oxygen Saturation 97% 01/12/2025 9:23 AM CDT Inhaled Oxygen Concentration - - Weight 71.1 kg (156 lb 12.8 oz) 01/12/2025 9:23 AM CDT Height 160 cm (5' 3 ) 01/12/2025 9:23 AM CDT Body Mass Index 27.78 01/12/2025 9:23 AM CDT Plan of Treatment Not on file Procedures Procedure Name Priority Date/Time Associated Diagnosis Comments POCT LIPID PANEL Routine 01/12/2025 10:0 6 AM CDT Mixed hyperlipidemia from Last 3 Months Results * POCT lipid panel (01/12/2025 10:06 AM CDT) Cholesterol, POC 171 mg/dL Comment:GLU = 101 HDL, POC 52 mg/dL Triglycerides, POC 108 mg/dL LDL Cholesterol POC 98 mg/dL Chol/HDL Ratio, POC 1.9 Non-HDL Cholesterol, POC 119 mg/dL Cholesterol Total, POC 171 mg/dL Capillary blood 01/12/2025 1 0:06 AM CDT [facility] Marisabel Gonzalez MD POINT OF CARE TEST ELLYN GONCALVES Final Result from Last 3 Months Insurance [facility] [employer] [facility] Address: [address] [address] [place] [address] [facility] Address: [address] [address] [place] [address] Care Teams Employee Relation Manager Relationship Specialty Start Date End Date Ryan Meyers MD PCP - General Internal Medicine 12/23/22 [place] [address] [place] [address] Internal Medicine 02/27/23
== END 2025-01-17 14:36 | disposition home or self-care (01) ==
LOC: CHSIMG 14:37
PROVIDERS: PCP Internal Medicine; Visit Provider Internal Medicine
DX: M25.561 Pain in right knee (principal); M17.11 Unilateral primary osteoarthritis, right knee; M11.261 Other chondrocalcinosis, right knee
CPT/HCPCS: 73562

== ENCOUNTER 2025-06-19 07:25 | Outpatient (CLI) | payer MEDICARE, SELFPAY ==
[2025-06-19 07:41] LABS: Add Urine Microscopic? YES; Glucose Urine UA Negative (Negative); Hematocrit 38.9 % (35.0-42.0); Hemoglobin 13.0 g/dL (11.7-13.8); Leukocyte Esterase Ur 2+ (Negative); Mean Corpuscular HGB Conc 33.4 g/dL (32-36); Mean Corpuscular Hemoglobin 34.7 pg (27.0-31.0); Mean Corpuscular Volume 103.7 fL (78.0-102.0); Nitrate Urine Negative (Negative); Platelet Count Result 166 K/mm3 (150-420); Red Blood Count 3.75 M/mm3 (4.20-5.40); Specific Grav Ur 1.010 (1.010-1.020); White Blood Count 5.6 K/mm3 (4.8-10.8)
[2025-06-19 07:58] LABS: Alanine Aminotransferase 18 U/L (6-35); Albumin Level 4.4 g/dL (3.5-5.1); Alkaline Phosphatase 90 U/L (38-126); Anion Gap 9 mmol/L (4-12); Aspartate Amino Transferase 32 U/L (14-36); Bilirubin,Total 1.1 mg/dL (0.2-1.3); Blood Urea Nitrogen 10 mg/dL (7-17); Calcium 10.5 mg/dL (8.4-10.2); Carbon Dioxide 29 mmol/L (22-30); Chloride 105 mmol/L (98-107); Cholesterol 165 mg/dL (0-200); Estimated Glomerular Filt Rate > 60; Glucose 96 mg/dL (65-110); HDL Direct 68 mg/dL; Osmolality Calculated 295 mOsm/kg (285-295); Potassium 4.4 mmol/L (3.4-5.0); Sodium 143 mmol/L (137-145); Total Protein 7.1 g/dL (6.3-8.2); Triglycerides 83 mg/dL (<150)
[2025-06-19 08:05] LABS: Appearance Urine Cloudy (Clear)
[2025-06-19 08:29] LABS: Thyroid Stimulating Hormone 4.650 uIU/mL (0.465-4.680)
== END 2025-06-19 07:26 | disposition home or self-care (01) ==
LOC: CHSLAB 07:28
PROVIDERS: PCP Internal Medicine; Visit Provider Internal Medicine
DX: E78.5 Hyperlipidemia, unspecified (principal); I10 Essential (primary) hypertension; R89.9 Unspecified abnormal finding in specimens from other organs, systems and tissues
CPT/HCPCS: 36415; 80053; 80061; 81001; 84443; 85027